=== PATIENT | male | born 1935 | race Caucasian/White ===

== ENCOUNTER 2017-08-04 22:59 | Inpatient (IN) ==
[2017-08-05 00:22] LABS: MANUAL DIFF NEEDED? NO
[2017-08-05 00:23] LABS: BASO% 0.6 % (0.0-0.8); EOS# 0.11 X1000 (0.0-0.7); EOS% 0.9 % (0.0-10.0); HEMATOCRIT 45.6 % (42.0-52.0); HEMOGLOBIN 15.2 g/dL (14.0-18.0); IMM GRAN# 0.17 X1000 (0.0-0.04); IMM GRAN% 1.3 % (0.0-0.5); LYMPH# 2.06 X1000 (1.2-3.4); LYMPH% 16.3 % (20.5-51.1); MCH 30.2 PG (27-31); MCHC 33.3 g/dL (33-37); MCV 90.7 FL (81-99); MONO# 1.45 X1000 (0.11-0.59); MONO% 11.5 % (1.7-9.3); MPV 10.5 FL (7.4-10.4); NEUT% 69.4 % (42.2-75.2); PLT 289 X1000 (130-400); RBC 5.03 XMIL (4.7-6.1)
[2017-08-05] MEDS ORDERED: MORPHINE IV ONE (00:29)
[2017-08-05] MEDS ORDERED: ZOFRAN IV ONE (00:30)
[2017-08-05] MEDS ORDERED: NS 1,000 ML IV ONE (00:33)
[2017-08-05 00:34] LABS: ALBUMIN 4.5 g/dL (3.5-5.0); CALCIUM 10.5 mg/dL (8.8-10.2); POTASSIUM 4.1 mmol/L (3.5-5.1); TOTAL BILIRUBIN 0.25 mg/dL (0.20-1.00); TOTAL PROTEIN 7.8 g/dL (6.3-8.3)
[2017-08-05 00:51] LABS: AMYLASE 147 U/L (20-200); LIPASE 41 U/L (13-60)
[2017-08-05] MEDS ORDERED: D5 1/2 NS 1,000 ML IV ONE (03:52)
[2017-08-05] MEDS: MORPHINE IV PRN (04:03)
--- NOTE | 2017-08-05 05:04 | HISTORY AND PHYSICAL ---
PRIMARY CARE PHYSICIAN: Dr. Tom Zamora. CHIEF COMPLAINT: Abdominal pain. HISTORY OF PRESENT ILLNESS: Mr. Schneider is an 81-year-old male with past medical history of anxiety, depression, hypertension, who comes to the hospital complaining of right upper quadrant pain. According to the patient, around 10:30 p.m. yesterday he felt a very sudden sharp right upper quadrant pain radiating towards his chest. For the following 4 hours, the pain increasingly became worse and decided to come to the emergency room. The patient denies any vomiting, diarrhea. He states he has been constipated for the last 3 days. The patient states that the pain was very intense and could hardly walk and his abdomen became very stiff. In the emergency room, he was given IV morphine which decreased the pain from 8/10 to 2-3. PAST MEDICAL HISTORY: 1. Anxiety. 2. Depression. 3. Hypertension. 4. Question of an HI. PAST SURGICAL HISTORY: 1. Appendectomy. 2. Goiter. 3. Two knee surgeries. 4. Right shoulder surgery. 5. Stent placement. 6. TURP. 7. Three lumbar surgeries. ALLERGIES: No known drug allergies. MEDICATIONS: 1. Hydrochlorothiazide 12.5 mg twice a day. 2. Carvedilol 3.125 mg twice a day. 3. Clopidogrel 75 mg oral daily. 4. Aspirin 81 mg tablet oral daily. 5. Amlodipine 5 mg tablet oral daily. 6. Citalopram 20 mg tablet oral daily. 7. Niacin 1000 mg twice a day. SOCIAL HISTORY: Patient quit smoking in 1954. The patient denies drinking alcohol or using illicit drugs. Patient lives at home with his . FAMILY HISTORY: Brother has prostate cancer. Father of bone marrow cancer after being exposed to radiation. PHYSICAL EXAMINATION: VITALS: Temperature 94.3 degrees, pulse 80, respirations 22, blood pressure 157/95, oxygen saturation 95% on room air. GENERAL: Patient is alert and oriented x3. No acute distress. HEENT: Head is normocephalic, atraumatic. Eyes, OSCAR. Dry mucous membranes. NECK: Supple. No JVD. PULMONARY: Well ventilated bilaterally. No wheezing, rales, or crackles. CARDIOVASCULAR: S1, S2. No rubs, murmurs, or gallops. ABDOMEN: Slightly stiff, nondistended. Positive Lucia sign. EXTREMITIES: No lower extremity edema. Pedal pulses +4 bilaterally. NEUROLOGIC: Cranial nerves 2-12 grossly intact. No focal deficits. PSYCHIATRIC: Normal mood and affect. LABORATORIES: White blood cell count 12.6, hemoglobin 15.2, hematocrit 45.6, platelets 289,000. Sodium 140, potassium 4.1, BUN 27, creatinine 1.3. LFTs within normal limits. Lipase and amylase within normal limits. IMAGING: CT of the abdomen official read is still pending. Per ED report, the gallbladder is dilated. There are no stones present. CT of the chest official read still pending. No signs of pulmonary embolism. ASSESSMENT AND PLAN: 1. Right upper quadrant pain, likely cholecystitis. The patient did have a positive Lucia sign. White blood cell count is minimally elevated at 12.6. However, clinically the patient seems to have cholecystitis. The CT of the abdomen did not show any gallstones. However, his gallbladder was distended. In the morning we will get a right upper quadrant ultrasound and we will consider a surgery consult. We will control the pain with morphine which has been having good results for the patient. The patient will be NPO. 2. Acute kidney injury. There are no previous records of patient's creatinine. Currently, it is 1.3. Likely acute kidney injury secondary to dehydration. We will provide patient with IV fluids. 3. Hypertension. Current blood pressure is 157/95. We will continue patient's home medication. 4. Coronary artery disease. We will continue patient's home medication, carvedilol, clopidogrel, aspirin, amlodipine. 5. Anxiety and depression. We will continue patient's home medication citalopram. cc: MD Tom Ace MD
[2017-08-05 05:32] LABS: URINE MICRO REVIEW NEEDED? NO; URINE SOURCE VOIDED
[2017-08-05 05:35] LABS: BILIRUBIN URINE NEGATIVE (NEGATIVE); BLOOD URINE NEGATIVE (NEGATIVE); COLOR STRAW; GLUCOSE URINE NEGATIVE (NEGATIVE); LEUKOCYTES URINE NEGATIVE (NEGATIVE); NITRITE URINE NEGATIVE (NEGATIVE); PROTEIN URINE NEGATIVE (NEGATIVE); SP GRAVITY URINE 1.031; TURBIDITY URINE CLEAR (CLEAR); UROBILINOGEN URINE NORMAL (NORMAL)
[2017-08-05 05:36] LABS: UR EPITHELIAL CELLS <10 /HPF (<10); URINE BACTERIA NEGATIVE /HPF; URINE RBC <10 /HPF (<10); URINE WBC <10 /HPF (<10)
--- NOTE | 2017-08-05 07:30 | Diag Imaging Result Doc PS360 ---
EXAM: CT ABD/PELVIS W/ IV CONT ONLY - 08/05/2017 HISTORY: acute abdomen TECHNIQUE: With intravenous contrast only per request the referring provider. Low-dose protocol. COMPARISON: None. FINDINGS: There is a large hiatal hernia which is partially included on the upper images of the exam. The visualized lung bases appear clear except for some compressive atelectasis at the left base from the hiatal hernia. There are no substantial abnormalities of the liver, spleen, adrenal glands, or pancreas identified, other than some atrophic changes of the pancreas. The gallbladder is moderately distended. There are no calcified gallstones or pericholecystic inflammation identified. There are small bilateral renal cysts. There is no solid renal mass or hydronephrosis identified. There are no substantial enlarged lymph nodes identified. There are atherosclerotic calcifications noted. There are lumbar spine degenerative changes noted. There is a moderate amount retained fecal debris in the colon. There is colonic diverticulosis. There is no evidence of diverticulitis. There are some retained fluid in stomach and small bowel. This may relate to mild gastroenteritis. There is no substantial small bowel distention to suggest obstruction identified. There is no free air, free fluid, or abscess identified. Images of pelvis otherwise show a fat-containing right inguinal hernia. There is no bowel containing hernia seen. The prostate is somewhat prominent with mass effect on the base the urinary bladder. IMPRESSION: Large hiatal hernia. Possible mild gastroenteritis. Moderately distended gallbladder. No calcified gallstones or pericholecystic inflammation seen. Evidence of constipation. Uncomplicated colonic diverticulosis. No abscess. No free air. Fat-containing right inguinal hernia. No bowel containing hernia. Somewhat prominent prostate with mass effect on the base of the urinary bladder. The senior data integration developer radiologist provided preliminary results at 1:38 AM on 08/05/2017. Electronically signed by Ivan Travis 08/05/2017 7:28 AM
--- NOTE | 2017-08-05 07:35 | Diag Imaging Result Doc PS360 ---
EXAM: CT THORAX W/O CONTRAST - 08/05/2017 HISTORY: pain TECHNIQUE: No additional intravenous contrast was administered for this exam, but there is intravenous contrast on board from the earlier CT abdomen and pelvis. Low-dose protocol. COMPARISON: None. FINDINGS: There is a large hiatal hernia. There is mild compressive atelectasis of the adjacent medial left lower lobe. The remainder of the lungs appear clear of acute changes. There is a small calcified granuloma from old granulomatous disease at the posterior right base. There is no consolidation, pleural effusion, or pneumothorax identified. There are a couple small emphysematous bulla at the left lower lobe. There are no abnormally enlarged mediastinal lymph nodes identified. There are apparent coronary artery calcifications noted. IMPRESSION: Large hiatal hernia. Mild compressive atelectasis at left lower lobe adjacent to the hernia. Minimal emphysematous changes. No other evidence of acute disease in the thorax. No pneumonia. There are apparent coronary artery calcifications noted. The semiconductor testing group leader radiologist provided preliminary results at 1:34 AM on 08/05/2017. Electronically signed by Ivan Travis 08/05/2017 7:32 AM
--- NOTE | 2017-08-05 07:58 | Diag Imaging Result Doc PS360 ---
US ABDOMEN-COMPLETE - 08/05/2017 INDICATION: RUQ pain COMPARISON: CT from earlier today FINDINGS: The gallbladder is distended with wall thickening and surrounding trace fluid. The gallbladder measures 12.4 x 5.7 x 4.9 cm. No definite shadowing gallstones. The pancreas is obscured by bowel gas. There is a small left renal cyst. The right kidney appears normal. The liver and spleen are normal. Common bile duct measures 6 mm. Aorta, IVC, and main portal vein are patent. IMPRESSION: Findings compatible with acute cholecystitis. A report was immediately called to the floor. Electronically signed by Abner Meza 08/05/2017 7:56 AM
[2017-08-05] MEDS ORDERED: ZOFRAN IV PRN (08:37)
[2017-08-05] MEDS ORDERED: HEPARIN SUBQ SCH (09:00)
[2017-08-05] MEDS ORDERED: HYDROCHLOROTHIAZIDE PO SCH (09:00)
[2017-08-05 09:30] LABS: INR 0.99; PROTIME 10.4 Seconds (9.2-11.7)
--- NOTE | 2017-08-05 10:48 | EKG Report ---
Test Performed on : 08/05/2017 08:39:58 AM Test Reason : chest pain Blood Pressure : / mmHG Vent. Rate : 076 BPM Atrial Rate : 076 BPM P-R Int : 256 ms QRS Dur : 092 ms QT Int : 394 ms P-R-T Axes : 000 -24 007 degrees QTc Int : 443 ms Sinus rhythm. with marked sinus arrhythmia. with 1st degree AV block. with occasional premature vent ricular complexes. Otherwise normal ECG No previous ECGs available Confirmed by Pasquale DIXON, Nitish Nielsen ([id number]) on 08/05/2017 5:01:04 PM
--- NOTE | 2017-08-05 15:47 | CONSULTATION ---
DATE OF CONSULTATION: 08/05/2017 REQUESTING PHYSICIAN: Gregory Zamora MD REASON FOR CONSULTATION: Concerning cholecystitis. HISTORY OF PRESENT ILLNESS: An 81-year-old male with a history of anxiety, depression, hypertension, came to the emergency department with right upper quadrant pain. He also reported some chest pain. It was described initially as sharp and sudden onset radiating towards chest. He denied any nausea or vomiting. He has had some change in his stool with now some dark, tarry stool. He is normally seen by Dr. Handy. He had a recent colonoscopy what sounds like a year and a half ago that showed no real pathology from what the patient can tell me, but this dark, tarry stool has persisted. He was evaluated in the emergency department, admitted for cholecystitis. He had a CT scan that showed a distended gallbladder and an ultrasound that showed gallbladder disease. I was asked to evaluate the patient. The patient is feeling better, but did have pain described as 8/10 initially. PAST MEDICAL HISTORY: Anxiety. Depression. Hypertension. History of UT. PAST SURGICAL: Appendectomy. Thyroid surgery. Two knee surgeries. Right shoulder surgery. Previous cardiac stent placement. TURP. Three lumbar surgeries. ALLERGIES: None. HOME MEDICATIONS: Hydrochlorothiazide. Carvedilol. Plavix. Aspirin. Amlodipine. Citalopram. Niacin. SOCIAL HISTORY: Former smoker. Denies alcohol, tobacco or illicit drugs currently. FAMILY HISTORY: Positive for prostate cancer. Bone marrow cancer. REVIEW OF SYSTEMS: A full 10-point review of systems obtained, negative except as specified in HPI. PHYSICAL EXAMINATION: Vital Signs: Patient is currently afebrile. His vital signs have been stable. General: No acute distress. Well-nourished, well-developed male, looks stated age. HEENT: Normocephalic, atraumatic. Pupils equal, round, reactive to light. Mucous membranes moist. Oropharynx benign. Neck: Supple. Trachea midline. Cardiovascular: Regular rate and rhythm. Lungs: Clear. Abdomen: Soft, tender to palpation in the right upper quadrant. Positive Lucia sign. No peritonitis. No other abdominal pain. Extremities: Moves all extremities. Neurologic: Grossly intact. Skin: No signs of jaundice. Vascular: All extremities perfused. LABORATORY: Reviewed. White blood cell count yesterday was 12. Liver function tests essentially within normal limits. UA within normal limits. CT scan and ultrasound reviewed, consistent with cholecystitis. ASSESSMENT AND PLAN: An 81-year-old male with acute cholecystitis. 1. Acute cholecystitis. At this time, patient is on antibiotics. He does take Plavix. He stopped it last night. We will need to hold off on any kind of surgical intervention unless his clinical picture holds. I have him tentatively scheduled for at noon. Once he has his HIDA scan which I think will confirm cholecystitis, he can start on a clear liquid diet. I did discuss this case with Dr. Zamora, his primary care physician. We will proceed with surgery. 2. Skin lesion. He does have an abdominal skin lesion about his subxiphoid area that measured about 1 cm in maximal diameter. At the time of the operation, I can excise the skin area. 3. Multiple medical comorbidities. Currently being managed by his primary care physician. cc: MD Tom Saenz MD
[2017-08-05] MEDS: NORVASC PO SCH (16:12)
[2017-08-05] MEDS: SODIUM CHLORIDE 0.9% INJ SCH (16:13)
[2017-08-05] MEDS: CELEXA PO SCH (16:13)
[2017-08-05] MEDS: PROTONIX IV SCH (16:13)
[2017-08-05] MEDS: LEVAQUIN 500 MG/D5W 500 MG/100 ML IVPB IV SCH (16:13)
--- NOTE | 2017-08-05 16:17 | Diag Imaging Result Doc PS360 ---
EXAM: HIDA SCAN W/ EJECTION FRACTION HISTORY: abdominal bloating TECHNIQUE: 5.3 mCi of Choletec administered COMPARISON: None. FINDINGS: There is prompt uptake of radiopharmaceutical within the liver. There is filling of the gallbladder by 15 minutes. Normal emptying into the small bowel. Ensure was given to determine the gallbladder ejection fraction. This is calculated to be only 4% at 60 minutes. This is well below the normal range. IMPRESSION: Abnormal exam with a below normal gallbladder ejection fraction. Electronically signed by Collin Gonzalez 08/05/2017 4:14 PM
--- NOTE | 2017-08-05 22:35 | PROGRESS NOTE ---
DATE: 08/05/2017 SUBJECT: Patient is well known to me in my practice. 81-year-old white gentleman admitted to the hospital last night with abdominal pain right upper quadrant. He was seen before in our office for URI symptoms. X-rays was reviewed with hiatal hernia. He is scheduled for EGD and colonoscopy by Dr. Mckee. Past medical history, past surgical history, medicines were reviewed. REVIEW OF SYSTEMS: Constitutional: Abdominal pain, nausea. HEENT: With no symptoms. Cardiopulmonary: No chest pain, shortness of breath, PND, orthopnea. GI: Right upper quadrant pain, nausea not associated with eating. No bowel movements, no constipation or diarrhea. : No history of hesitancy, frequency. No swelling of legs. No joint pain. Neuro: No focal symptoms or weakness. PHYSICAL EXAMINATION: Vital Signs: He is afebrile and vitals are stable, 5 feet 9, 168 pounds. HEENT: Within normal limits. Neck: Supple. No lymphadenopathy. Vital Signs: Afebrile, blood pressure is stable, 5 feet 9, 168 pounds. HEENT: Atraumatic, normocephalic. Pupils equal, react to light. No anemia. No cyanosis. No jaundice. Neck: Supple. No lymphadenopathy. No goiter. Chest: Clear. Heart: Sounds are regular. Belly: Is soft. Tender in the right upper quadrant. Positive Lucia sign. No signs of peritonitis. Rectal: Deferred. Neuro: No neurological deficits noted. INVESTIGATIONS: CBC, white cell count 12, hematocrit 45, platelets 289,000, PT 10, INR 0.9. SMA 7, sodium 140 potassium 4.1, chloride 96, BUN 27, creatinine 1.3, glucose 147. LFTs were normal. ProBNP is normal. Cardiac enzymes, amylase, lipase were normal. ASSESSMENT AND PLAN: 1. 81-year-old white male admitted to the hospital with abdominal pain consistent with acalculous cholecystitis. Chest CT, abdominal pelvic CT were reviewed and distended gallbladder, large hiatal hernia. Hold the Plavix and HIDA scan today. 2. Large hiatal hernia. Continue on IV Protonix. 3. Elevated white cell count, also prophylactic intravenous antibiotics. 4. Hypertension on amlodipine. 5. Depression on Celexa. 6. Surgical consult Dr. Moctezuma. 7. Continue to hold the Plavix. 8. Based on the HIDA scan further recommendations will be followed. LEVEL OF DOCUMENTATION: 35 minutes. cc: Tom Zamora MD
[2017-08-06 05:53] LABS: HEMATOCRIT 39.1 % (42.0-52.0); HEMOGLOBIN 12.6 g/dL (14.0-18.0); MCH 30.6 PG (27-31); MCHC 32.2 g/dL (33-37); MCV 94.9 FL (81-99); RBC 4.12 XMIL (4.7-6.1)
[2017-08-06 05:57] LABS: AGAP 9; BUN 15 mg/dL (8-22); CALCIUM 8.4 mg/dL (8.8-10.2); CHLORIDE 102 mmol/L (98-107); COSMO 281; SODIUM 140 mmol/L (136-145); TCO2 29 mmol/L (25-35)
--- NOTE | 2017-08-06 06:34 | PROGRESS NOTE ---
DATE: 08/06/2017 SUBJECTIVE: Patient doing okay. No major issues. He did have his HIDA scan yesterday which showed chronic cholecystitis. The gallbladder did fill. He seems to be doing okay. His pain is improving. OBJECTIVE: Vital Signs: Patient is currently afebrile. His vital signs are stable. General Examination: No acute distress. Well-nourished, well-developed, male , looks stated age. HEENT: Normocephalic, atraumatic. Pupils equal, round, and reactive to light. Mucous membranes moist. Oropharynx benign. Neck: Supple. Trachea midline. Cardiovascular: Regular rate and rhythm. Lungs: Grossly clear. Abdomen: Soft. Mild tenderness to palpation epigastric and right upper quadrant. No peritoneal signs. Extremities: Moves all extremities. Neurologic: Grossly intact. Skin: No signs of jaundice. Vascular: All extremities perfused. Laboratory: White blood cell count is 14, hematocrit 39. Remainder of labs reviewed and essentially normal. Imaging reviewed and noted above. ASSESSMENT/PLAN: An 81-year-old, male with likely acute on chronic cholecystitis. 1. Acute on chronic cholecystitis. At this time, patient is on antibiotics. He was taking Plavix. He seems to be clinically doing well. I have him tentatively scheduled for surgery on . There is a possibility that if he improves clinically, he could be discharged and we could arrange to have his surgery done as an outpatient procedure but we will defer that to his primary care physician. We will keep him on a clear liquid diet at this point. 2. Skin lesion. At this time, he does have a skin lesion in the right subxiphoid trocar site. We will plan on excision of that at the same time of his operation. 3. Multiple medical comorbidities. Currently being managed by his primary care physician, Dr. Zamora. cc: MD Tom Saenz MD MTDD
[2017-08-06] MEDS: LEVAQUIN 500 MG/D5W 500 MG/100 ML IVPB IV SCH (09:19)
[2017-08-06] MEDS: NORVASC PO SCH (09:19)
[2017-08-06] MEDS: CELEXA PO SCH (09:19)
[2017-08-06] MEDS: SODIUM CHLORIDE 0.9% INJ SCH (09:20)
[2017-08-06] MEDS: PROTONIX IV SCH (09:20)
[2017-08-06] MEDS: MORPHINE IV PRN (11:18)
[2017-08-06] MEDS: NUBAIN IV PRN ×2 (12:40→22:04)
--- NOTE | 2017-08-06 18:55 | PROGRESS NOTE ---
DATE: 08/06/2017 SUBJECTIVE: The patient developed abdominal bloating, distention with clear liquids. Hold on Plavix. Waiting for laparoscopic cholecystectomy. REVIEW OF SYSTEMS: No chest pain, shortness of breath. OBJECTIVE: Vital Signs: Afebrile. Hemodynamics were stable. HEENT: Atraumatic, normocephalic. Pupils equal, reactive to light. Neck: Supple. No lymphadenopathy. Chest: Clear. Heart: Sounds are regular. Abdomen: Belly is soft. Tender in the right upper quadrant. No signs of peritonitis. Extremities: No peripheral edema, cyanosis. Neurologic: No obvious neurological deficits. ASSESSMENT AND PLAN: 1. Acalculous cholecystitis. EF 4%. Waiting for laparoscopic cholecystectomy on . Continue to hold on Plavix. 2. Hiatal hernia. Continue on IV Protonix. 3. Elevated white cell count. IV Levaquin. 4. We will discuss with Dr. Bayron Moctezuma whether he needs EGD or colonoscopy while he has been off Plavix. Discussed the plan of care and will follow up. LEVEL OF DOCUMENTATION: 25 minutes. cc: Tom Zamora MD
--- NOTE | 2017-08-07 06:20 | PROGRESS NOTE ---
DATE: 08/07/2017 SUBJECTIVE: Patient is doing okay. No major issues. OBJECTIVE: Vital Signs: Patient is currently afebrile. His vital signs are stable. General: No acute distress. HEENT: Normocephalic, atraumatic. Pupils equal, round, reactive to light. Mucous membranes moist. Oropharynx benign. Neck: Supple. Trachea midline. Cardiovascular: Regular rate and rhythm. Lungs: Clear. Abdomen: Soft. Minimal discomfort. Extremities: Moves all extremities. Neurologic: Grossly intact. Skin: No signs of jaundice. Vascular: All extremities perfused. LABORATORY: Reviewed from yesterday. ASSESSMENT AND PLAN: An 81-year-old male with acute on chronic cholecystitis. 1. At this time with acute on chronic cholecystitis, we will continue antibiotics. His Plavix is being held. We will plan on surgical intervention tomorrow. 2. Skin lesion. At this time, we will plan on intervention while he is in the operating room. 3. Change in bowel habits. At this time, given the change in bowel habits, I think we potentially could conceive doing an EGD and colonoscopy while he is on Plavix. I am unsure how well he would tolerate both procedures at the same setting. May need to space it out by 24 hours. I will discuss further with Dr. Zamora. cc: MD Tom Saenz MD
[2017-08-07] MEDS: LEVAQUIN 500 MG/D5W 500 MG/100 ML IVPB IV SCH (08:01)
[2017-08-07] MEDS: CELEXA PO SCH (08:01)
[2017-08-07] MEDS: PROTONIX IV SCH (08:01)
[2017-08-07] MEDS: NORVASC PO SCH (08:01)
[2017-08-07] MEDS: SODIUM CHLORIDE 0.9% INJ SCH (08:03)
[2017-08-07] MEDS: MORPHINE IV PRN (15:27)
[2017-08-07] MEDS: NUBAIN IV PRN (16:39)
--- NOTE | 2017-08-07 19:16 | PROGRESS NOTE ---
DATE: 08/07/2017 SUBJECTIVE: The patient complains of right upper quadrant pain off the Plavix. REVIEW OF SYSTEMS: Other than abdominal pain, none reported. EXAMINATION: Vitals: Are stable. HEENT: Within normal limits. Neck: Supple. Chest: Clear. Heart: Sounds are regular. Abdomen: Belly is soft. Tender in the right upper quadrant. Neurologic: No neurological deficits. ASSESSMENT AND PLAN: 1. Abdominal pain due to acalculous cholecystitis. Waiting for surgery in the morning. 2. Large hiatal hernia. Patient has been scheduled for EGD and colonoscopy. Discussed with Dr. Moctezuma. He is going to do the EGD and colonoscopy on Saturday, and continue present treatment with Levaquin, Zofran and Protonix. LEVEL OF DOCUMENTATION: 15 minutes. cc: Tom Zamora MD
--- NOTE | 2017-08-08 06:33 | PROGRESS NOTE ---
DATE: 08/08/2017 SUBJECTIVE: Patient doing okay. No major issues. OBJECTIVE: Vital Signs: Patient is currently afebrile. His vital signs are stable. General: No acute distress. HEENT: Normocephalic, atraumatic. Pupils equal, round, reactive to light. Mucous membranes moist. Oropharynx benign. Neck: Supple. Trachea midline. Cardiovascular: Regular rate and rhythm. Lungs: Clear. Abdomen: Soft. Minimal discomfort. Extremities: Moves all extremities. Neurologic: Grossly intact. Skin: No signs of jaundice. Vascular: Lower extremities perfused. LABORATORY: None this morning as of yet. ASSESSMENT AND PLAN: An 81-year-old male with acute on chronic cholecystitis. 1. Acute on chronic cholecystitis. At this time, we will plan for surgical intervention. His Plavix has been held. We will plan on surgery today. 2. Change in bowel habits. At this time, we have tentatively scheduled a colonoscopy and EGD for Saturday. He does have some reported dark-tarry stools. So again, would want to do both upper and lower endoscopy. His Plavix is being held. We will likely start his bowel prep tonight after the surgery. 3. Skin lesion. At this time, we will plan on removing it while in the operating room. cc: MD Tom Saenz MD
[2017-08-08] MEDS: LEVAQUIN 500 MG/D5W 500 MG/100 ML IVPB IV SCH (07:50)
[2017-08-08] MEDS: PROTONIX IV SCH (07:51)
[2017-08-08] MEDS: SODIUM CHLORIDE 0.9% INJ SCH (07:51)
[2017-08-08] MEDS: MORPHINE IV PRN (08:06)
[2017-08-08] MEDS: CELEXA PO SCH (08:16)
[2017-08-08] MEDS: NORVASC PO SCH (08:17)
[2017-08-08] MEDS ORDERED: MARCAINE 0.25% PF ONE (13:24)
[2017-08-08] MEDS ORDERED: LR 1,000 ML ONE ×2 (13:25→15:33)
[2017-08-08] MEDS ORDERED: SODIUM CHLORIDE 0.9% ONE (13:25)
[2017-08-08] MEDS ORDERED: DIPRIVAN 1% ONE (13:27)
[2017-08-08] MEDS ORDERED: XYLOCAINE-MPF 2% ONE (13:29)
[2017-08-08] MEDS ORDERED: FENTANYL ONE ×2 (13:52→14:57)
[2017-08-08] MEDS ORDERED: ZEMURON ONE (13:54)
[2017-08-08] MEDS ORDERED: EPHEDRINE ONE (14:21)
[2017-08-08] MEDS ORDERED: ZOFRAN ONE (14:21)
[2017-08-08] MEDS ORDERED: NEOSTIGMINE ONE (14:49)
[2017-08-08] MEDS ORDERED: ROBINUL ONE (14:49)
[2017-08-08] MEDS: MORPHINE ONE ×5 (15:30→15:50)
[2017-08-08] MEDS ORDERED: NORCO-10 ONE (15:58)
[2017-08-08] MEDS ORDERED: GOLYTELY PO ONE (16:25)
[2017-08-08] MEDS: LR 1,000 ML IV SCH (19:32)
--- NOTE | 2017-08-08 20:05 | OPERATIVE NOTE ---
PROCEDURE DATE: 08/08/2017 PREOPERATIVE DIAGNOSES: 1. Acute on chronic cholecystitis. 2. 1 cm abdominal wall skin lesion. POSTOPERATIVE DIAGNOSES: 1. Acute on chronic cholecystitis. 2. 1 cm abdominal wall skin lesion. PROCEDURES PERFORMED: 1. Laparoscopic cholecystectomy. 2. Excision of 1 cm skin lesion with complex closure via a 3 cm incision. SURGEON: Bayron Moctezuma MD HAND BOOTMAKER: None. ANESTHESIA: General endotracheal. INTRAOPERATIVE FINDINGS: Inflamed and irritated gallbladder, consistent with acute on chronic cholecystitis. He was on Plavix, which was held for least 4 days but still had friable tissue that is easy to bleed. His skin lesion was a tough skin lesion that measured 1 cm. It was excised completely. COMPLICATIONS: None at the time of dictation. ESTIMATED BLOOD LOSS: 30 mL. SPECIMENS REMOVED: Gallbladder and skin lesion. DRAIN: 19-[place]amese. HISTORY: The patient is an 81-year-old male presenting with symptoms consistent with cholecystitis. We admitted the patient and held his Plavix for 4 days to try to relieve some of the effect. The patient also had a skin. He wanted both procedures done at the same time. The risks, benefits, and alternatives were discussed. The risks include but are not limited to anesthesia, risk of bleeding, risk of infection, risk of damage to biliary tree and bile leak. All questions were answered. DESCRIPTION OF PROCEDURE: After informed consent was obtained, the patient was brought to the operating theatre and transferred to the operating table in supine position. General endotracheal anesthesia was then performed without complication. A formal time-out was then performed, confirming patient, date, and procedure. All were in agreement. At that time, attention was given to the abdomen. An infraumbilical incision was made, through which, using Optiview technique, we inserted a 12 mm trocar and connected it to insufflation. A pneumoperitoneum was achieved. Under direct visualization, we placed 3 more trocars, all 5 mm, 2 subcostal and 1 in the subxiphoid. Using these, the gallbladder was identified. It was very inflamed, consistent with acute cholecystitis. He likely had underlying chronic cholecystitis. We were able to elevate the gallbladder cephalad and dissect out the cystic duct and cystic artery to achieve the critical view of safety. We doubly clipped and ligated both the cystic duct and cystic artery and then dissected the gallbladder off the gallbladder fossa. It was very friable. We did tear a hole in the gallbladder, which drained some bile, but the liver bed was very friable. There was no active bleeding but just a friable overall surface. We placed the gallbladder into an endobag and brought it out through the infraumbilical incision, which had to be enlarged slightly to accommodate the size of the gallbladder. We then turned our attention to the gallbladder fossa. We irrigated out the abdomen copiously until the suction fluid was clear. Given the dense inflammatory process, the bleeding, this patient being on Plavix and spillage of bile, we elected to leave a drain tunneled from the most lateral trocar site to the right upper quadrant. We secured it in place with nylon and we then closed the infraumbilical incision with 0 Vicryl figure- of-eight with decent results. The patient did have tenuous fascia in this area. We then closed all skin incisions. We turned our attention to removing the abdominal skin lesion. It measured 1 cm. We made a 3 cm elliptical incision and removed it in its entirety. To facilitate closure, we did have to create some subcutaneous flaps. We did this and then closed it with 3-0 nylon. All skin incisions were closed with 4-0 Monocryl. The patient tolerated the procedure well and had a sterile dressing applied. He will keep his Saul-Pereira drain and we will plan for colonoscopy and EGD in the morning. cc: MD Tom Saenz MD
--- NOTE | 2017-08-08 20:37 | PROGRESS NOTE ---
DATE: 08/08/2017 SUBJECTIVE: The patient has some neck pain this morning. Waiting for gallbladder surgery. REVIEW OF SYSTEMS: Normal. PHYSICAL EXAMINATION: Vital Signs: Stable. HEENT: Within normal limits. Neck: Supple. Chest: Clear. Heart: Sounds are regular. Abdomen: Belly is soft. Tender in the right upper quadrant. ASSESSMENT AND PLAN: 1. Acalculous cholecystitis. Waiting for laparoscopic cholecystectomy. 2. Hiatal hernia. Waiting for EGD and colonoscopy in the morning while he has been off the Plavix. 3. Neck pain, probably referred pain or musculoskeletal. We will continue to watch. Hopefully we will discharge home offered EGD and colonoscopy tomorrow. LEVEL OF DOCUMENTATION: 25 minutes. cc: Tom Zamora MD
[2017-08-08] MEDS: PERIDEX MT SCH (23:05)
[2017-08-09] MEDS: NUBAIN IV PRN ×2 (02:35→13:17)
--- NOTE | 2017-08-09 06:13 | PROGRESS NOTE ---
DATE: 08/09/2017 SUBJECTIVE: The patient is doing okay. He has had some difficulty with his bowel prep. He has not had a bowel movement but he is not sick to his stomach. He feels a little bit bloated from his laparoscopic surgery, but otherwise he is doing okay. He has been on clear liquid diet for essentially 3-4 days. His pain is relatively well-controlled and calls it a 2 or 3, or even 4/10. Seems to be doing well. OBJECTIVE: Vital Signs: Patient is currently afebrile. His vital signs have been stable. General Examination: No acute distress. Resting comfortably. Cardiovascular: Regular rate and rhythm. Lungs: Grossly clear. Abdomen: Soft, appropriately tender. Saul- Pereira drain in place. 410 were recorded out over the last 24 hours. There is some mild bile tinge to the fluid but looks sanguinous too. ASSESSMENT/PLAN: An 81-year-old male, status post laparoscopic cholecystectomy for acute on chronic cholecystitis, now with hiatal hernia and change in bowel habits. 1. Status post cholecystectomy. At this time his Saul-Pereira drain needs to stay in place. He was more inflamed than initially thought. Left the drain given the inflammation. I suspect some of the bile in the DANNY is from the fact that we drained a little of the gallbladder and the bile into the abdomen intraoperatively. We will need to monitor its output and its characteristics to see if this persists, but I suspect that this is all draining intra- abdominal fluid. If it persists, may need to consider doing an endoscopic retrograde cholangiopancreatography. 2. Hiatal hernia. At this time, we will plan on esophagogastroduodenoscopy. 3. Change in bowel habits. At this time, we will plan on colonoscopy. I will give him two enemas this morning to see if we can clean him out. He might have a limited colonoscopy. 4. Skin lesion excised during the last procedure. cc: MD Tom Saenz MD MTDD
[2017-08-09] MEDS ORDERED: DIPRIVAN 1% ONE ×2 (09:03→09:22)
[2017-08-09] MEDS ORDERED: XYLOCAINE-MPF 2% ONE (09:08)
[2017-08-09] MEDS: CELEXA PO SCH (09:53)
[2017-08-09] MEDS: PERIDEX MT SCH ×2 (09:53→22:00)
[2017-08-09] MEDS: NORVASC PO SCH (09:53)
[2017-08-09] MEDS: PROTONIX IV SCH (12:29)
[2017-08-09] MEDS: LR 1,000 ML IV SCH ×2 (12:29→22:03)
[2017-08-09] MEDS: LEVAQUIN 500 MG/D5W 500 MG/100 ML IVPB IV SCH (13:32)
--- NOTE | 2017-08-09 15:51 | OPERATIVE NOTE ---
PROCEDURE DATE: 08/09/2017 PREOPERATIVE DIAGNOSES: 1. Hiatal hernia. 2. Melena. 3. Change in bowel habits. POSTOPERATIVE DIAGNOSES: 1. Type III hiatal hernia which was large with tortuous esophagus. 2. Tortuous esophagus. 3. Gastritis. 4. Pandiverticulosis. 5. Tortuous colon. 6. Poor bowel prep. 7. Nodular prostate. PROCEDURES PERFORMED: 1. Esophagogastroduodenoscopy. 2. Colonoscopy to the transverse colon. SURGEON: Bayron Moctezuma MD EXPERIENCE DESIGNER: None. ANESTHESIA: MAC. FINDINGS: As noted above. COMPLICATIONS: None at the time of dictation. ESTIMATED BLOOD LOSS: Zero. HISTORY: The patient is an 81-year-old male, presenting with change in his bowel habits. I did take his gallbladder out yesterday. He wanted to have EGD and colonoscopy while he was off his Plavix. He did have a poor bowel prep and had to have enemas, with which he still did not have much output, although we will do this procedure. The risks, benefits, and alternatives were discussed. All questions were answered. DESCRIPTION OF PROCEDURE: After informed consent was obtained, the patient was brought to the GI suite and placed on the GI table. MAC anesthesia was then performed without complication. A formal time-out was then performed, confirming patient, date, and procedure. All were in agreement. At that time, attention was given to the abdomen. An EGD scope was inserted through the oropharynx and passed through the esophagus. The esophagus was very tortuous. He had a large type III hiatal hernia, but we were able to get the scope into the esophagus, into the stomach, and into the duodenum. We saw no ulcers. He did have some gastritis but it was only mild. Again, he had a large, type III, hiatal hernia that incorporated about half of his stomach and, again, the esophagus was tortuous. Secondary to this, we removed the scope, repositioned the patient in decubitus, and did a digital rectal exam. He did have a nodular prostate. We then inserted the colonoscope. We had difficulty inserting all the way. We got about to the transverse colon. The colon was very tortuous. He had multiple diverticula and his abdomen was getting distended. We did not want to risk perforation. Again, his bowel prep was very poor. I could not visualize all surfaces, but I did not see any signs of bleeding. We removed the scope slowly, reviewing all surfaces but, again, it was a limited exam. The patient tolerated the procedure well and was transferred back to the recovery room in stable condition. cc: MD Tom Saenz MD
--- NOTE | 2017-08-09 21:20 | PROGRESS NOTE ---
DATE: 08/09/2017 SUBJECT: Patient complains of neck pain, also some hoarseness. DANNY drain draining a lot of fluid. Some bruising at the site of the incision. REVIEW OF SYSTEMS: None reported. PHYSICAL EXAMINATION: Vital signs: Are stable. HEENT: Within normal limits. Neck: Supple. No lymphadenopathy. Chest: Clear. Heart: Sounds are regular. Belly: Is soft and DANNY drain present. Neuro: No obvious neurological deficits. ASSESSMENT AND PLAN: 1. Status post laparoscopic cholecystectomy for acalculous cholecystitis. DANNY drain is there. Will follow up with Dr. Bayron Moctezuma. 2. Hiatal hernia and off Plavix, poor prep. Will go to EGD and colonoscopy today. Will hold the discharge. Continue present medical therapy. Check the labs in the morning. LEVEL OF DOCUMENTATION: 25 minutes. cc: Tom Zamora MD
[2017-08-09] MEDS: MIRALAX PO SCH (22:00)
[2017-08-10 05:59] LABS: MANUAL DIFF NEEDED? NO
[2017-08-10 06:09] LABS: BASO% 0.2 % (0.0-0.8); EOS# 0.03 X1000 (0.0-0.7); EOS% 0.3 % (0.0-10.0); HEMATOCRIT 35.8 % (42.0-52.0); HEMOGLOBIN 11.7 g/dL (14.0-18.0); IMM GRAN# 0.03 X1000 (0.0-0.04); IMM GRAN% 0.3 % (0.0-0.5); LYMPH# 0.77 X1000 (1.2-3.4); MCH 30.5 PG (27-31); MCHC 32.7 g/dL (33-37); MCV 93.2 FL (81-99); MONO# 1.65 X1000 (0.11-0.59); MPV 10.7 FL (7.4-10.4); NEUT% 77.2 % (42.2-75.2); PLT 205 X1000 (130-400); RBC 3.84 XMIL (4.7-6.1)
[2017-08-10 06:37] LABS: AGAP 10; BUN 14 mg/dL (8-22); CALCIUM 8.8 mg/dL (8.8-10.2); CHLORIDE 103 mmol/L (98-107); COSMO 282; POTASSIUM 3.8 mmol/L (3.5-5.1); SODIUM 141 mmol/L (136-145); TCO2 28 mmol/L (25-35)
[2017-08-10] MEDS ORDERED: LR 1,000 ML IV SCH (08:07)
--- NOTE | 2017-08-10 10:40 | PROGRESS NOTE ---
DATE: 08/10/2017 SUBJECTIVE: Interval history was reviewed. The patient had EGD and colonoscopy yesterday. The findings were hiatal hernia, tortuous esophagus, diverticulosis, tortuous colon, nodular prostate. The patient has trouble peeing. DANNY drain still also a lot of fluid coming. REVIEW OF SYSTEMS: No neck pain. No cardiopulmonary symptoms. GI: Constipation. : Trouble of peeing. No swelling of legs. Neurologic: No focal symptoms. PHYSICAL EXAMINATION: Afebrile. Vitals are stable. Oxygen saturation is 92% on room air. Input and output negative 2200.HEENT Exam: Within normal limits. Neck: Supple. Chest: Clear. Heart: Sounds are regular. Abdomen: Belly is soft. DANNY drain was draining and Galeas was placed. Extremities: No peripheral edema, cyanosis. No obvious neurological deficits. INVESTIGATIONS: CBC, white cell count 11, hematocrit 35, platelets 205,000. SMA 7 was normal. Urinalysis is clear. 1. Postop day 2 due to acalculous cholecystitis. DANNY drain still draining. 2. Hiatal hernia. Stable. 3. Bladder outlet obstruction. Galeas catheter. On Flomax and bladder training. 4. Constipation on MiraLAX. 5. Hiatal hernia. Continue on IV Protonix and slowly advance the diet. Level of documentation 35 minutes. cc: Tom Zamora MD
--- NOTE | 2017-08-10 11:40 | PROGRESS NOTE ---
DATE: 08/10/2017 SUBJECTIVE: Jude Schneider is postop day 1 from a laparoscopic cholecystectomy per Dr. Moctezuma. A drain was left at the time of surgery. There is no bile draining from that drain. OBJECTIVE: He is awake, cooperative, tolerating liquids. He has a Galeas catheter tube in place because of urinary retention. He remains on IV Levaquin. His white blood cell count 11. He is afebrile. His hematocrit is 36%. Electrolytes are within normal limits. PLAN: We will advance his diet to a regular diet. His Baldo drain needs to be removed prior to discharge. His Galeas catheter tube will remain because of his urinary retention. He is on Flomax. His abdomen is soft. All his incisions are intact. cc: MD Tom Mccarthy MD
[2017-08-10] MEDS: CELEXA PO SCH (11:51)
[2017-08-10] MEDS: NORVASC PO SCH (11:52)
[2017-08-10] MEDS: MIRALAX PO SCH ×2 (11:52→21:13)
[2017-08-10] MEDS: SODIUM CHLORIDE 0.9% INJ SCH (11:52)
[2017-08-10] MEDS: PROTONIX IV SCH (11:52)
[2017-08-10] MEDS: PERIDEX MT SCH ×2 (11:53→21:13)
[2017-08-10] MEDS: FLOMAX PO SCH (12:11)
[2017-08-10] MEDS: LEVAQUIN 500 MG/D5W 500 MG/100 ML IVPB IV SCH (13:20)
[2017-08-11] MEDS: SODIUM CHLORIDE 0.9% INJ SCH (08:46)
[2017-08-11] MEDS: PERIDEX MT SCH ×2 (08:46→21:23)
[2017-08-11] MEDS: FLOMAX PO SCH (08:46)
[2017-08-11] MEDS: PROTONIX IV SCH (08:46)
[2017-08-11] MEDS: NORVASC PO SCH (08:46)
[2017-08-11] MEDS: MIRALAX PO SCH ×2 (08:47→21:23)
[2017-08-11] MEDS: CELEXA PO SCH (08:47)
--- NOTE | 2017-08-11 09:43 | PROGRESS NOTE ---
DATE: 08/11/2017 SUBJECTIVE: Mr. Jude Schneider is now postop day 2 from a laparoscopic cholecystectomy per Dr. Moctezuma. He still has a Galeas catheter tube in place because of urinary retention. He is a patient Dr. Gregory Zamora. OBJECTIVE: His heart rate this morning is 69, blood pressure is 153/73, O2 saturation 94%. He has no work of breathing. He clinically feels better. He is sitting up in bed. He has tolerated a regular diet. His DANNY drain is draining mostly serous fluid. His abdomen might be a little bit distended. All trocar sites seem to be healing well. PLAN: I removed his DANNY drain. His Galeas tube is being clamped in preparation of possibly having it removed per Dr. Zamora. We will saline lock his fluids because he is eating. He is also having some trouble with peripheral IVs. He continues to get IV levofloxacin per Dr. Zamora. cc: MD Tom Mccarthy MD
[2017-08-11] MEDS: LEVAQUIN 500 MG/D5W 500 MG/100 ML IVPB IV SCH (12:25)
--- NOTE | 2017-08-11 13:09 | PROGRESS NOTE ---
DATE: 08/11/2017 SUBJECTIVE: The patient is tolerating the diet very well. No abdominal pain. No neck pain. He has a Galeas that was placed. He looks a lot better today than yesterday. DANNY drain still has some fluid and Dr. Mcnamara is going to remove it today. REVIEW OF SYSTEMS: None reported. OBJECTIVE: Vital Signs: Temperature is 98 degrees. Hemodynamics are stable. He is 97% on room air. HEENT: Within normal limits. Neck: Supple. Chest: Clear to auscultation. Heart: Sounds are regular. Abdomen: Belly is soft, nontender. : Galeas was placed. INVESTIGATIONS: PSA was 6.9. ASSESSMENT AND PLAN: 1. Acalculous cholecystitis status post laparoscopic cholecystectomy. We will remove the DANNY drain as per Dr. Mcnamara. 2. Discontinue IV fluids since he is tolerating the diet. 3. Bladder outlet obstruction, elevated prostate specific antigen. Will do a bladder voiding trial along with Flomax. He was on IV Levaquin. If he is stable we will DC the Galeas catheter, based on the bladder scan results. LEVEL OF DOCUMENTATION: 25 minutes. cc: Tom Zamora MD
--- NOTE | 2017-08-12 06:14 | PROGRESS NOTE ---
DATE: 08/12/2017 SUBJECTIVE: The patient is doing well and tolerating a regular diet. He says he has had 3 bowel movements and seems to be doing okay, seems to be voiding. Reviewed his weekend history, he did have his Saul-Pereira drain removed over the weekend by my partner, Dr. Mcnamara, who apparently had just serous fluid coming out. Otherwise, he seems to be doing well. OBJECTIVE: Vital Signs: Patient is currently afebrile. His vital signs have been stable. General: No acute distress resting comfortably in bed. Cardiovascular: Regular rate and rhythm. Lungs: Grossly clear. Abdomen: Soft. Appropriately tender and less distended than reported over the weekend. ASSESSMENT/PLAN: An 81-year-old male with acute on chronic cholecystitis. Large hiatal hernia. Change in bowel habits and a nodular prostate. 1. Status post cholecystectomy. At this time, he is doing okay. His Saul-Pereira drain has been removed. He seems to be healing up well. He can likely be discharged from a surgical point of view. 2. Hiatal hernia. At this time, it is rather large and does not appear to be causing any kind of ulceration. He does not appear to be having dysphagia although he has a tortuous esophagus secondary to the position of his stomach. I would like to discuss this further with him as an outpatient, but at this time we will just monitor. 3. Change in bowel habits. At this time, he had incomplete colonoscopy secondary to bowel prep. I would want to see the patient back in a week or 2 to consider a repeat colonoscopy in 3-6 months to try to be able to see the whole entirety of the colon to make sure there is nothing that we missed completely. 4. Nodular prostate. At this time, the patient does have an elevated PSA. It was felt on exam during colonoscopy that we will need to follow up with this. I will defer to his primary care physician Dr. Zamora. cc: MD Tom Saenz MD
[2017-08-12 07:28] VITALS: BP 155/74
[2017-08-12] MEDS: CELEXA PO SCH (08:06)
[2017-08-12] MEDS: NORVASC PO SCH (08:06)
[2017-08-12] MEDS: MIRALAX PO SCH (08:06)
[2017-08-12] MEDS: SODIUM CHLORIDE 0.9% INJ SCH (08:06)
[2017-08-12] MEDS: PERIDEX MT SCH (08:06)
[2017-08-12] MEDS: PROTONIX IV SCH (08:06)
[2017-08-12] MEDS: FLOMAX PO SCH (08:06)
[2017-08-12] MEDS ORDERED: FLUZONE QUAD 2017-2018 SYRINGE IM ONE (08:18)
[2017-08-12] MEDS ORDERED: PNEUMOVAX 23 IM ONE (08:30)
--- NOTE | 2017-08-13 06:43 | DISCHARGE SUMMARY ---
ADMISSION DATE: 08/05/2017 DISCHARGE DATE: 08/12/2017 DISCHARGING DIAGNOSIS: Abdominal pain due to acalculous cholecystitis, ejection fraction 4%, status post laparoscopic cholecystectomy. SECONDARY DIAGNOSES: 1. Persistent cough due to moderate hiatal hernia. 2. Bladder outlet obstruction due to nodular prostate, prostate specific antigen of 6.4. 3. Chronic anxiety/depression. 4. Hypertension. 5. History of coronary artery disease with stents. FOOD TESTER: Bayron Moctezuma MD. PROCEDURES: 1. Laparoscopic cholecystectomy. 2. EGD and colonoscopy. Findings hiatal hernia. 3. Calculus colon with diverticulosis and nodular prostate. BRIEF HISTORY: Please see the H and P that was done on 08/05/2017. In brief, this is an 81-year- old pleasant gentleman with above problems, was admitted to the hospital with acute abdominal pain, nausea, and vomiting. Symptoms is consistent with gallbladder disease. Ultrasound was negative for gallstone disease. HIDA scan showed acalculous cholecystitis, ejection fraction 4%. Nevertheless, this surgery was postponed for 2 days because of the anticoagulation on board. Plavix was stopped and after per day, patient had a laparoscopic cholecystectomy. Postoperative course was complicated by a bladder outlet obstruction requiring Galeas catheter and Flomax. Galeas was successfully discontinued after bladder voiding trials. Patient is voiding very well. He also had EGD and colonoscopy done since she has been off the Plavix with above findings. The patient was discharged home in a stable condition. LABS: CBC: White cell count 11, hematocrit 35, platelets 205,000. SMA-7 was normal. PSA 6.49. Cardiac enzymes and proBNP were normal. Urinalysis is clear. RADIOLOGY PROCEDURES: Abdominal, pelvic CT: Findings large hiatal hernia, distended gallbladder, constipation, and diverticulosis. Chest CT: No evidence of acute disease in the thorax, coronary artery calcifications noted. Ultrasound of the abdomen compatible with the acute cholecystitis, distended gallbladder, and thickening. Ejection fraction is 4% on HIDA scan. PATHOLOGY REPORTS: 1. Gallbladder: Acute on chronic cholecystitis. 2. Abdominal epidermal cyst was removed. DISCHARGE INSTRUCTIONS: 1. Flu vaccine, 08/12/2017. 2. Pneumococcal vaccine, 08/12/2017. 3. Coreg 3.125 p.o. b.i.d. 4. Hold the Plavix until 10 days. 5. Aspirin 80 mg daily. 6. Celexa 20 daily. 7. Norvasc 5 mg daily. 8. Hold hydrochlorothiazide. 9. Niacin 1000 p.o. b.i.d. 10. Protonix 40 mg daily. 11. Flomax 0.4 mg daily. 12. Reglan 5 mg t.i.d. 13. Tramadol 50 q.4 hours as needed for pain. 14. Follow up in my office in 2 weeks as well as Dr. Bayron Moctezuma. cc: MD Bayron Glasgow MD [facility]
--- NOTE | 2017-08-14 18:15 | PROVIDER DOCUMENTATION ---
This chart was entered by Olivia Frias Scribe, acting as scribe for Kevin Mckeon MD. HPI-Abdominal Pain/GI Problem - General Chief Complaint: Constipation Stated Complaint: "IMPACTED ABOUT A WEEK" Time Seen by Provider: 08/05/17 00:18 Source: patient Allergies/Adverse Reactions: Patient Allergies Allergy/AdvReac Type Severity Reaction Status Date / Time No Known Allergies Allergy Verified 01/19/13 12:25 Home Medications: Home Medication List Medication Instructions Recorded Confirmed Last Taken Type Aspirin 81 mg PO DAILY 01/19/13 08/05/17 08/04/17 History Carvedilol [Coreg] 3.125 mg PO BID 01/19/13 08/06/17 08/04/17 History Amlodipine [Norvasc] 5 mg PO DAILY 08/05/17 08/05/17 08/04/17 History Citalopram [Celexa] 20 mg PO DAILY 08/05/17 08/05/17 08/04/17 History Niacin 1,000 mg PO BID 08/05/17 08/05/17 08/04/17 History Metoclopramide HCl [Reglan] 5 mg PO TID #90 tablet 08/12/17 Unknown Rx Pantoprazole [Protonix] 40 mg PO DAILY@0700 #30 tablet 08/12/17 Unknown Rx Tamsulosin [Flomax] 0.4 mg PO QHS #30 capsule 08/12/17 Unknown Rx Tramadol [Ultram] 50 mg PO Q4HR #30 tablet 08/12/17 Unknown Rx - History of Present Illness-ABD Nature of Presenting Problems: 81 Y/O M present to ER with the complain of abd pain this night. pt states that he heard some pop sound in his stomach. pt states that he is trying to have regular BM for X4 days. pt states that he was impacted X1 week. Abdominal Pain Onset Location: reports: generalized abdomen Pain Radiation: reports: no radiation Quality of Pain: reports: sharp Severity in ED: reports: moderate Onset/Duration: reports: this evening Timing: reports: still present Activities at Onset: reports: none Exposure to sick contacts?: No Modifying Factors: improves with: nothing Associated Symptoms: reports: constipation Last BM: 4 days ago Dark Stools Present?: reports: none noticed Rectal Bleeding: reports: none Rectal Pain: reports: none Emesis Description: reports: none Bruising or Bleeding Gums?: No Review of Systems - Adult - REVIEW OF SYSTEMS - ADULT Constitutional: reports: no symptoms reported Eyes: reports: no symptoms reported Ears, Nose, Mouth & Throat: reports: no symptoms reported Cardiovascular: reports: no symptoms reported Respiratory: reports: no symptoms reported Gastrointestinal: reports: abdominal pain, constipation, other (no regular BM in last X4days). denies: nausea, vomiting Genitourinary: reports: no symptoms reported Musculoskeletal: reports: no symptoms reported Integumentary: reports: no symptoms reported Neurological: reports: no symptoms reported Psychiatric: reports: no symptoms reported Endocrine: reports: no symptoms reported Hematologic/Lymphatic: reports: no symptoms reported Allergic/Immunologic: reports: no symptoms reported All Other Systems: Reviewed and Negative Past History - Adult - PAST MEDICAL HISTORY-ADULT Review of Records: reports: Old Records Reviewed, Nursing Assessment Review - PRIOR SURGERIES/PROCEDURES Surgical/Procedure History: reports: appendectomy, other (total knee and RT shoulder) - IMMUNIZATION STATUS Childhood Immunizations: See Nurse Assessment Flu Vaccine: See Nurse Assessment Physical Exam-General - PHYSICAL EXAM-ADULT Initial Vital Signs Reviewed: Yes - CONSTITUTIONAL General Appearance: moderate distress, anxious, combative - EYES Eyes: PERRL/EOMI, pink conjunctivae - HEAD, EARS, NOSE, MOUTH & THROAT HENMT: normocephalic/atraumatic, moist mucous membranes - NECK Neck: non-tender, full range of motion, supple - RESPIRATORY Respiratory: chest non-tender, lungs clear, normal breath sounds - CARDIOVASCULAR Cardiovascular: normal peripheral pulses, regular rate, rhythm, no edema - GASTROINTESTINAL (ABDOMEN) Abdominal Exam: abnormal bowel sounds (no bowel sound), distended, other (acute abd and tightness) - MUSCULOSKELETAL Back Exam: normal inspection, no CVA tenderness, no vertebral tenderness Extremity: no pedal edema, no calf tenderness. negative: swelling, tenderness - SKIN Integumentary: normal color, normal turgor, warm/dry - NEUROLOGIC Neurologic: grossly normal, no motor/sensory deficits - PSYCHIATRIC Psych/Mental Status: normal mood/affect, normal thought content, normal thought process, oriented x 3 Progress - PLAN OF CARE/RESULTS Progress/Plan/Lab Results: Vital Signs - 8 hr 08/04/17 23:11 Temperature 94.3 F L Pulse Rate 65 Respiratory Rate 18 Blood Pressure 130/82 O2 Sat by Pulse Oximetry 100 Laboratory Results - last 24 hr 08/04/17 23:56 WBC 12.60 H RBC 5.03 Hgb 15.2 Hct 45.6 MCV 90.7 MCH 30.2 MCHC 33.3 RDW Std Deviation 14.2 Plt Count 289 MPV 10.5 H Immature Gran % (Auto) 1.3 H Neut % (Auto) 69.4 Lymph % (Auto) 16.3 L [place] % (Auto) 11.5 H Eos % (Auto) 0.9 Baso % (Auto) 0.6 Immature Gran # (Auto) 0.17 H Neut # (Auto) 8.73 H Lymph # (Auto) 2.06 [place] # (Auto) 1.45 H Eos # (Auto) 0.11 Baso # (Auto) 0.08 Orders Category Date Time Status flat [FLAT/UPRIGHT ABD/1 VIEW CHEST] [RAD] Stat Exams 08/05/17 00:11 Ordered CBC WITH ELECTRONIC DIFF [HEME] Stat Lab 08/05/17 00:11 Completed COMPREHENSIVE METABOLIC PANEL [CHEM] Stat Lab 08/05/17 00:11 Received Result Diagrams: 08/10/17 05:45 08/10/17 05:45 - CT/MRI 1 CT Study: Abdomen Impression: Abnormal, See EMR Report 2 CT Study: other (chest) Impression: Abnormal CT Results: indeterminate L upper lobe pulmonary nodule by radiologist - CONSULTS/PCP/HOSPITALIST Notification #1 *Consult/PCP/Hospitalist*: Dr. Cohn Time Discussed: 02:18 Reason/Comments: discussed about pt Consult Disposition: Admit Departure - Departure Date of Disposition Decision: 08/05/17 Time of Disposition Decision: 01:00 DIAGNOSIS: Cholecystitis Constipation Qualifiers: Constipation type: unspecified constipation type Qualified Code(s): K59.00 - Constipation, unspecified Disposition: ADMITTED INPATIENT 09 Certified Medical Emergency: Emergent Condition: Good - Critical Care Note This patient required my direct & personal management of CC.: No Attestation - Physician/ ASHLY Attestation Patient care was provided by Advanced Practice Provider:: No The physician spent face to face time with patient:: Yes Advanced Practice Provider documentation review:: Supervising physician onsite and consulted in the evaluation and care of this patient. The physician did have a face to face encounter with the patient. This chart was documented by the indicated scribe, (Olivia Frias, [place]) and accurately reflects the services I performed and decisions made by me, Kevin Mckeon MD, as attested by the provider's signature.
== END 2017-08-12 09:30 | disposition home or self-care (01) ==
LOC: ED 22:59 → 4N 08-05 03:52 → SUATTDRO 08-05 03:52
PROVIDERS: ADMIT Internal Medicine; ATTEND Internal Medicine

== ENCOUNTER 2019-03-05 09:52 | Inpatient (IN) ==
[2019-03-05] MEDS ORDERED: ASPIRIN ONE (10:05)
[2019-03-05] MEDS ORDERED: ASPIRIN PO ONE (10:31)
[2019-03-05 10:46] LABS: BASO# 0.05 X1000 (0.0-0.2); BASO% 0.7 % (0.0-0.8); EOS# 0.19 X1000 (0.0-0.7); EOS% 2.8 % (0.0-10.0); HEMATOCRIT 40.1 % (42.0-52.0); HEMOGLOBIN 12.8 g/dL (14.0-18.0); IMM GRAN# 0.02 X1000 (0.0-0.04); IMM GRAN% 0.3 % (0.0-0.5); LYMPH% 20.4 % (20.5-51.1); MCH 29.2 PG (27-31); MCHC 31.9 g/dL (33-37); MCV 91.6 FL (81-99); MONO# 0.78 X1000 (0.11-0.59); MONO% 11.4 % (1.7-9.3); MPV 11.3 FL (7.4-10.4); NEUT# 4.41 X1000 (1.4-6.5); NEUT% 64.4 % (42.2-75.2); PLT 133 X1000 (130-400); RBC 4.38 XMIL (4.7-6.1); RDW 14.6 % (11.5-14.5); WBC 6.85 X1000 (4.8-10.8)
--- NOTE | 2019-03-05 10:48 | Diag Imaging Result Doc PS360 ---
EXAM: CHEST-PORTABLE 03/05/2019 HISTORY: cp TECHNIQUE: AP portable at 1039 COMMENT: There is a large hiatal hernia. There has been resolution of platelike atelectatic changes in the left base since 11/29/2018. No new abnormalities are present. IMPRESSION: Hiatal hernia. Electronically signed by Miles Quezada 03/05/2019 10:45 AM
[2019-03-05 10:53] LABS: INR 0.95; PROTIME 13.5 Seconds (11.0-16.0)
[2019-03-05 10:54] LABS: PTT 24.9 Seconds (22.3-41.8)
[2019-03-05 11:32] LABS: AGAP 9; ALB/GLOB RATIO 1.3; ALKALINE PHOSPHATASE 94 U/L (32-122); BUN 17 mg/dL (8-22); CALCIUM 9.1 mg/dL (8.8-10.2); CHLORIDE 106 mmol/L (98-107); CK PROFILE 62 U/L (24-204); COSMO 281; ESTIMATED GFR > 60; GLUCOSE 108 mg/dL (70-104); GOT 21 U/L (10-34); GPT 22 U/L (10-44); POTASSIUM 3.8 mmol/L (3.5-5.1); SODIUM 140 mmol/L (136-145); TCO2 25 mmol/L (25-35); TOTAL BILIRUBIN 0.42 mg/dL (0.20-1.00)
--- NOTE | 2019-03-05 16:18 | EKG Report ---
Test Performed on : 03/05/2019 11:06:25 AM Test Reason : sob Blood Pressure : / mmHG Vent. Rate : 046 BPM Atrial Rate : 046 BPM P-R Int : 264 ms QRS Dur : 086 ms QT Int : 470 ms P-R-T Axes : 048 -18 -23 degrees QTc Int : 411 ms Sinus bradycardia. with 1st degree AV block. with occasional premature ventricular complexes. Otherwise normal ECG When compared with ECG of 05-MAR-2019 10:06, (Unconfirmed) premature ventricular complexes. are now present Unconfirmed Result
[2019-03-05] MEDS: LIPITOR PO SCH (20:24)
--- NOTE | 2019-03-05 21:51 | HISTORY AND PHYSICAL ---
CHIEF COMPLAINT: Dizzy, near-syncope, getting pale since yesterday. HISTORY OF PRESENT ILLNESS: He is an 83-year-old white male with existing coronary artery disease, status post 2 stents, on medical treatment. He was evaluated in the ER with recurrent dizzy spells and near-syncope. The patient was found to have sinus bradycardia with a junctional first-degree AV block. The patient was consulted by Dr. Plasencai. He is not offering any chest pain. Basically admitted to the hospital with syncope or near-syncope due to symptomatic sinus bradycardia, appears to be sick sinus syndrome. PAST MEDICAL HISTORY: CAD with stents, RCA and LAD in 01/2019; hypertension; hiatal hernia; hyperlipidemia; osteoarthritis; C-spine spondylosis; prostate cancer. PAST SURGICAL HISTORY: Right knee surgery, left knee arthroscopy, stents x2 by Dr. Melgar, right cataract surgery, thyroidectomy, appendectomy, cholecystectomy, umbilical hernia repair, incisional hernia repair, radical prostatectomy, back surgery, right shoulder surgery. MEDICATIONS: Aspirin 81 mg daily, Coreg 12.5 p.o. b.i.d., Cozaar 100 daily, Flonase as needed, hydrochlorothiazide 12.5 p.o. b.i.d., Protonix 40 daily, Plavix 75 daily. ALLERGIES: HOLLIS inhibitors due to cough, statins due to rash and hives. SOCIAL HISTORY: He is single. He has 3 children. 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 No smoking, no alcohol. FAMILY HISTORY: Father of leukemia. Mother of diabetic complications. Brother had prostate cancer. HEALTH MAINTENANCE: Flu vaccine in 2017, pneumococcal in 2016, shingles in 2006. Last prostate exam 06/2018. Colonoscopy and EGD 08/2017. REVIEW OF SYSTEMS: HEENT: No headache, no vision problem. No earache. No sore throat. Neck: No goiter. No lymphadenopathy. No bruit. Cardiopulmonary: No chest pain. No shortness of breath, PND or orthopnea. GI: No nausea, vomiting, abdominal pain. : No history of hesitancy, frequency, dysuria. No swelling of legs. No joint pain. Neurologic: No focal symptoms or weakness. PHYSICAL EXAMINATION: VITAL SIGNS: Temperature is 98 degrees, pulse is 50, blood pressure 150/68. Five feet 9 inches, 170 pounds. HEENT: Atraumatic, normocephalic. Pupils equal and reactive to light. Nose and throat within normal limits. NECK: Supple. No lymphadenopathy. CHEST: Bilateral air entry. HEART: Sounds are regular. No murmur. ABDOMEN: Belly is soft, nontender. Multiple scars present. NEUROLOGIC: No neurological deficits. LABORATORY DATA: CBC: White cell count 6.8, hematocrit 40, platelets 133,000. PT/INR is normal. SMA 7, LFTs and cardiac enzymes were normal. We will check the thyroid function tests. DIAGNOSTIC DATA: Chest x-ray basically showed hiatal hernia, stable. EKG: Sinus with junctional and PVCs. ASSESSMENT AND PLAN: 1. Near-syncope. Basically due to symptomatic sinus bradycardia with junctional and possible sick sinus syndrome. Discontinue Coreg. Cardiology consult. 2. History of coronary artery disease with stents. Probably he needs permanent pacemaker. 3. Reconcile home medications. 4. Discussed the plan of care with the and family. We will continue to monitor. If he is symptomatic, he needs transcutaneous external pacing versus atropine. cc: Tom Zamora MD
[2019-03-06 05:45] LABS: BASO# 0.04 X1000 (0.0-0.2); BASO% 0.6 % (0.0-0.8); EOS# 0.23 X1000 (0.0-0.7); EOS% 3.7 % (0.0-10.0); HEMATOCRIT 38.7 % (42.0-52.0); HEMOGLOBIN 12.4 g/dL (14.0-18.0); IMM GRAN# 0.02 X1000 (0.0-0.04); IMM GRAN% 0.3 % (0.0-0.5); LYMPH# 1.86 X1000 (1.2-3.4); LYMPH% 29.9 % (20.5-51.1); MCH 29.5 PG (27-31); MCV 91.9 FL (81-99); MONO# 0.84 X1000 (0.11-0.59); MONO% 13.5 % (1.7-9.3); MPV 11.3 FL (7.4-10.4); NEUT# 3.23 X1000 (1.4-6.5); PLT 178 X1000 (130-400); RBC 4.21 XMIL (4.7-6.1); RDW 14.7 % (11.5-14.5); WBC 6.22 X1000 (4.8-10.8)
[2019-03-06 06:01] LABS: AGAP 10; BUN 18 mg/dL (8-22); CHLORIDE 107 mmol/L (98-107); CK PROFILE 41 U/L (24-204); COSMO 287; ESTIMATED GFR > 60; GLUCOSE 103 mg/dL (70-104); POTASSIUM 3.9 mmol/L (3.5-5.1); SODIUM 143 mmol/L (136-145); TCO2 26 mmol/L (25-35)
[2019-03-06 06:13] LABS: FREE T4 0.99 ng/dL (0.93-1.70)
[2019-03-06 06:19] LABS: TSH 7.58 uIUmL (0.27-4.20)
--- NOTE | 2019-03-06 07:25 | EKG Report ---
Test Performed on : 03/06/2019 06:45:47 AM Test Reason : cp Blood Pressure : / mmHG Vent. Rate : 050 BPM Atrial Rate : 050 BPM P-R Int : 258 ms QRS Dur : 098 ms QT Int : 454 ms P-R-T Axes : 000 205 174 degrees QTc Int : 413 ms Sinus bradycardia. with 1st degree AV block. Right superior axis deviation T wave abnormality, consider inferior ischemia Abnormal ECG When compared with ECG of 05-MAR-2019 12:00, (Unconfirmed) premature ventricular complexes. are no longer present QRS axis shifted left T wave inversion now evident in Lateral leads Confirmed by Saul DIXON, Jose Abernathy ([id number]) on 03/08/2019 4:38:34 PM
[2019-03-06] MEDS: PLAVIX PO SCH (08:14)
[2019-03-06] MEDS: ASPIRIN PO SCH (08:15)
[2019-03-06] MEDS ORDERED: COZAAR PO SCH (09:00)
--- NOTE | 2019-03-06 09:17 | EKG Report ---
Test Performed on : 03/05/2019 12:00:10 PM Test Reason : ED. No order in MT Blood Pressure : / mmHG Vent. Rate : 043 BPM Atrial Rate : 043 BPM P-R Int : 260 ms QRS Dur : 092 ms QT Int : 482 ms P-R-T Axes : 031 -14 -15 degrees QTc Int : 407 ms Marked sinus bradycardia. with 1st degree AV block. with occasional premature ventricular complexes. Abnormal ECG When compared with ECG of 05-MAR-2019 11:06, (Unconfirmed) No significant change was found Unconfirmed Result
[2019-03-06] MEDS ORDERED: COREG PO SCH (10:15)
[2019-03-06] MEDS: COREG PO SCH ×2 (11:01→21:35)
[2019-03-06 11:27] LABS: MAGNESIUM 1.9 mg/dL (1.5-2.7)
--- NOTE | 2019-03-06 17:41 | CARDIOLOGY CONSULTATION ---
DATE: 03/06/2019 CONSULTATION REQUESTED BY: Hospitalist service. REASON: Dizziness, near syncope, bradycardia. HISTORY: Mr. Schneider is a pleasant 83-year-old male that I recently saw in my office on February 20. The patient presented to the ER yesterday because on March 04 he had been to the [place] to do a few things. He was there somewhere around 2:30 or 2:45PM. He went to do some things like pumping gas. He filled up his tank. He went to a store there and was looking for some clothing. As he came close to looking at the labels of a pair of shoes, he suddenly felt blurred vision. He felt sweaty, weak, dizzy. He went to a cafeteria, had a glass of orange juice and ate something and after a while he felt better. Then he drove back home. By the time he made home, which is about 45 minutes to 1 hour he reported falling asleep for a short period of time on the wheel. As soon as he made it home, his noted that he was extremely pale. He laid down at about 4:30 p.m. and stayed there for a while. He slept. The next morning he got up and decided to seek evaluation. He called my office. Unfortunately, we were not able to see him and one of my attendants took him to the emergency room. In the ER, they did an EKG at about 10 a.m. that showed sinus bradycardia 351 beats per minute with first-degree AV block, 260 milliseconds. No acute ischemic changes. The patient had reported no chest pains or true syncope. Subsequent EKG done at 11 a.m. shows sinus rhythm with first-degree AV block, PVCs. Rate 46 beats per minute. The EKG done this morning at 6:45 in the morning showed sinus bradycardia, rate 53 per minute. There is lead reversal on this particular EKG. There is no ST- segment abnormalities. They have checked troponins a couple of times, one at 10 a.m. yesterday, one at 4:45 in the morning. They were negative. The patient has not had any chest pain. ProBNP is normal. He is basically feeling back to his normal self or close to it. PAST HISTORY: Positive for previous coronary stents several years ago and then recently in January of this year to the right coronary artery. Excellent results were achieved. He has history of hypertension, hyperlipidemia, osteoarthritis. SURGICAL HISTORY: He has had bilateral knee surgery, cataract surgery, he has had thyroidectomy, cholecystectomy, umbilical hernia repair, back surgery and right shoulder surgery. SOCIAL HISTORY: He is a . He lives at home. He has grown-up children. He is . He is not a smoker. He is ex-. HOME MEDICATIONS: At the time of the present hospital admission he was taking atorvastatin 20 mg at bedtime, carvedilol 12.5 twice a day, Plavix 75 daily, hydrochlorothiazide 12.5 twice a day, losartan 100 daily, aspirin 81 daily. REVIEW OF SYSTEMS: He has not had any major complaint in any major organ system up until the onset of the aforementioned complaints related in the HPI. PHYSICAL EXAM: Today blood pressure is 143/81, temperature 97.9 degrees, pulse 61, respirations 16.General: Patient is awake, alert, oriented, in no distress. HEENT: Unremarkable. Chest: Clear to auscultation and percussion. Heart: Sounds are regular rhythmic. I do not hear any gallop or murmur. Abdomen: Nontender, soft. No masses, no hepatomegaly. Extremities: Show good pulses. No peripheral edema. Neurological: Nonfocal. Moves 4 extremities. BLOOD WORK: Sodium 143, potassium 3.9, BUN is 18, creatinine 1.0. CK, troponin normal. Hemoglobin 12.4, hematocrit 38.7, MCV 91.9. Chest x-ray done in the ER shows hiatal hernia. IMPRESSION: 1. Patient who presents with what appears to be symptomatic bradycardia/vasovagal or vasodepressor syncope. 2. Abnormal EKG with first-degree atrioventricular block, sinus bradycardia and premature ventricular contractions. 3. History of severe coronary heart disease. Previous stent to right coronary artery and a prior stent several years ago to the same vessel. 4. Hyperlipidemia. 5. Osteoarthritis. RECOMMENDATION: At this time, I would suggest to minimize the beta-mary carmen to 3.125 mg twice a day. I will provide the patient with a loop recorder monitor. We will stop hydrochlorothiazide. We will make the Cozaar 50 twice a day instead of once a day. He will monitor his blood pressure home twice daily. I will reassess him at my office in a month after he has completed the loop recorder monitor. Further advice will be forthcoming. If patient is stable overnight, he may go home tomorrow morning. cc: MD Tom Stein MD MTDD
--- NOTE | 2019-03-06 18:47 | PROGRESS NOTE ---
DATE: 03/06/2019 SUBJECTIVE: The patient is feeling better and continues to have sinus bradycardia with PVCs, asymptomatic and waiting to be seen by die storage clerk. PHYSICAL EXAMINATION: Vital Signs: Temperature is 97 degrees, pulse is 56. Vitals are stable. Chest: Clear. Heart: Sounds are regular. Neurologic: No neurological deficits. INVESTIGATIONS: CBC is normal. SMA 7 is normal. Cardiac enzymes were negative. TSH is slightly high. T4 is normal. LDL is 59. ASSESSMENT AND PLAN: Symptomatic sinus bradycardia, rule out sick sinus syndrome. PLAN: 1. Decrease Coreg 3.125 p.o. b.i.d., aspirin. 2. Hypertension on Cozaar 50 p.o. b.i.d. and aspirin. 3. Hyperlipidemia on Lipitor. 4. Depression on Celexa. 5. Dr. Smith wants to monitor next 24 hours if he is asymptomatic. Will DC as an outpatient 30 day loop monitor and discuss the plan of care with the family. We need to reconcile his home medications. LEVEL OF DOCUMENTATION: 27 minutes. cc: Tom Zamora MD
[2019-03-06] MEDS ORDERED: CALMOSEPTINE OINTMENT TOP PRN (20:15)
[2019-03-06] MEDS: LIPITOR PO SCH (21:35)
[2019-03-07] MEDS: PLAVIX PO SCH (08:57)
[2019-03-07] MEDS: COREG PO SCH (08:57)
[2019-03-07] MEDS: ASPIRIN PO SCH (08:57)
[2019-03-07] MEDS ORDERED: COZAAR PO SCH (09:00)
--- NOTE | 2019-03-07 11:10 | PROGRESS NOTE ---
DATE: 03/07/2019 SUBJECTIVE: Mr Schneider has symptomatic bradycardia. He was admitted for near syncope. His TSH was somewhat low at 7.5. I started Levothroid on him today. His lab data showed CBC and electrolytes are unchanged. Cardiac enzymes have been negative. He is being seen by a drafting instructor, was seen by Dr. Smith. Lungs are clear. Heart sounds are normal. We are going to continue to watch him. cc: MD Tmo Vargas MD
[2019-03-07 12:15] VITALS: BP 145/78
[2019-03-08] MEDS ORDERED: SYNTHROID PO SCH (07:00)
--- NOTE | 2019-03-09 13:20 | DISCHARGE SUMMARY ---
ADMISSION DATE: 03/05/2019 DISCHARGE DATE: 03/07/2019 DISCHARGING DIAGNOSIS: Near syncope due to sick sinus syndrome, junctional with PVCs, sinus bradycardia SECONDARY DIAGNOSES: 1. Coronary artery disease with 2 stents. 2. Hypertension. 3. Hiatal hernia. 4. Hyperlipidemia. 5. Osteoarthritis. 6. History of prostate cancer. 7. C-spine spondylosis. CONSULTATIONS: Dr. Smith. BRIEF HISTORY: Please see the H and P that was done on 03/05/2019. In brief, he is an 83-year- old white male who came to the emergency room with near syncope for the last 2 days. The patient was found to have bradycardia junctional with PVCs, heart rate as low as 40. He has known history of coronary artery disease times with 2 stents under the care of Dr. Smith. During telemetry, the patient continues to have sinus bradycardia. The patient was on Coreg. We decreased the dose from 12.5 mg to 3.[address] Smith continues to monitor as an outpatient with a 30 day loop monitor. The patient was discharged home in a stable condition by Dr. Graham. LABORATORY: CBC: White cell count 6.2, hematocrit 38, and platelets 178,000. SMA 7 is normal. Cardiac enzymes were normal. TSH is slightly high. LDL 59. DISCHARGE INSTRUCTIONS: 1. Discontinue Coreg 12.5 p.o. b.i.d., aspirin 81 mg daily, Plavix 75 daily, Cozaar 100 daily, hydrochlorothiazide 12.5 daily, Lipitor 20 mg at bedtime. Coreg was decreased to 3.125 p.o. b.i.d. Celexa 20 mg daily. Synthroid 50 mcg daily for elevated TSH. 2. Outpatient: 30 day Loop monitor. 3. Follow up in my office next week. cc: MD Alfredo Glasgow MD MTDD
== END 2019-03-07 14:31 | disposition home or self-care (01) | DRG 310 ==
LOC: ED 09:52 → 3S 14:24
PROVIDERS: ADMIT Internal Medicine; ATTEND Internal Medicine
CPT/HCPCS: 71010; 71045; 80048; 80053; 82550; 83721; 83735; 83880; 84439; 84443; 84484; 85025; 85610; 85730; 93005; 93010; 99285; A9270

== ENCOUNTER 2019-10-18 16:23 | Inpatient (IN) ==
--- NOTE | 2019-10-18 16:55 | Diag Imaging Result Doc PS360 ---
EXAM: CT HEAD W/O CONTRAST 10/18/2019 HISTORY: syncope TECHNIQUE: This exam was performed using automated exposure control, adjustment of mA or kV according to patient size, and/or use of iterative reconstruction technique. COMMENT: There is no evidence of mass effect, bleed, or abnormal extra-axial fluid collection. The visualized paranasal sinuses are clear. The calvarium is intact. IMPRESSION: No evidence of acute intracranial disease. Electronically signed by Miles Quezada 10/18/2019 4:53 PM
--- NOTE | 2019-10-18 16:58 | Diag Imaging Result Doc PS360 ---
EXAM: CHEST-PORTABLE 10/18/2019 HISTORY: syncopal episode/confusion TECHNIQUE: AP portable at 1653 COMMENT: There is a large hiatal hernia. There is platelike opacity in both costophrenic angles. IMPRESSION: Hiatal hernia. Bibasilar atelectasis. Electronically signed by Miles Quezada 10/18/2019 4:55 PM
[2019-10-18 17:34] LABS: BASO# 0.06 X1000 (0.0-0.2); BASO% 0.9 % (0.0-0.8); EOS# 0.21 X1000 (0.0-0.7); EOS% 3.1 % (0.0-10.0); HEMATOCRIT 38.4 % (42.0-52.0); LYMPH# 1.75 X1000 (1.2-3.4); LYMPH% 26.1 % (20.5-51.1); MCH 29.4 PG (27-31); MCHC 31.3 g/dL (33-37); MCV 94.1 FL (81-99); MONO# 0.94 X1000 (0.11-0.59); MPV 11.5 FL (7.4-10.4); NEUT# 3.74 X1000 (1.4-6.5); NEUT% 55.9 % (42.2-75.2); PLT 172 X1000 (130-400); RBC 4.08 XMIL (4.7-6.1); RDW 13.8 % (11.5-14.5)
[2019-10-18 17:40] LABS: INR 1.03; PROTIME 13.6 Seconds (11.0-16.0)
[2019-10-18 18:06] LABS: AGAP 12; ALB/GLOB RATIO 1.6; ALBUMIN 3.7 g/dL (3.5-5.0); ALKALINE PHOSPHATASE 84 U/L (32-122); BUN 18 mg/dL (8-22); CALCIUM 9.4 mg/dL (8.8-10.2); CHLORIDE 105 mmol/L (98-107); COSMO 285; ESTIMATED GFR > 60; GLUCOSE 96 mg/dL (70-104); GOT 17 U/L (10-34); GPT 14 U/L (10-44); POTASSIUM 4.2 mmol/L (3.5-5.1); SODIUM 142 mmol/L (136-145); TCO2 25 mmol/L (25-35); TOTAL BILIRUBIN 0.19 mg/dL (0.20-1.00)
[2019-10-18 18:12] LABS: T4 5.74 ug/dL (4.60-12.00)
[2019-10-18 18:23] LABS: TSH 7.17 uIUmL (0.27-4.20)
[2019-10-18 18:51] LABS: URINE SOURCE CLEAN CATCH
[2019-10-18 19:00] LABS: BILIRUBIN URINE NEGATIVE (NEGATIVE); BLOOD URINE NEGATIVE (NEGATIVE); COLOR YELLOW; GLUCOSE URINE NEGATIVE (NEGATIVE); KETONE URINE NEGATIVE (NEGATIVE); LEUKOCYTES URINE NEGATIVE (NEGATIVE); NITRITE URINE NEGATIVE (NEGATIVE); PH URINE 7.5; PROTEIN URINE NEGATIVE (NEGATIVE); SP GRAVITY URINE 1.021; TURBIDITY URINE CLEAR (CLEAR); UROBILINOGEN URINE NORMAL (NORMAL)
[2019-10-18 19:02] LABS: UR EPITHELIAL CELLS <10 /HPF (<10); URINE BACTERIA NEGATIVE /HPF; URINE RBC <10 /HPF (<10); URINE WBC <10 /HPF (<10)
[2019-10-18] MEDS ORDERED: TYLENOL PO PRN (20:23)
[2019-10-18] MEDS ORDERED: ZOFRAN IV PRN (20:23)
[2019-10-18 20:58] LABS: IRON SATURATION 16 %; TIBC 302 ug/dL; TOTAL IRON 49 ug/dL (53-167); UNBOUND IRON 253 ug/dL (112-346)
[2019-10-18] MEDS: COLACE PO SCH (21:26)
[2019-10-18] MEDS: NS 1,000 ML IV SCH (21:27)
[2019-10-18] MEDS: LIPITOR PO SCH (23:01)
[2019-10-19] MEDS: COZAAR PO SCH ×2 (00:05→08:21)
--- NOTE | 2019-10-19 00:20 | EKG Report ---
Test Performed on : 10/18/2019 9:49:20 PM Test Reason : Stroke like symptoms Blood Pressure : / mmHG Vent. Rate : 061 BPM Atrial Rate : 061 BPM P-R Int : 000 ms QRS Dur : 082 ms QT Int : 466 ms P-R-T Axes : 000 -22 -01 degrees QTc Int : 469 ms Atrial fibrillation. Abnormal ECG When compared with ECG of 06-MAR-2019 06:45, Atrial fibrillation. has replaced Sinus rhythm. QRS axis shifted right T wave inversion no longer evident in Lateral leads QT has lengthened Unconfirmed Result
--- NOTE | 2019-10-19 05:42 | HISTORY AND PHYSICAL ---
ATTENDING PHYSICIAN: Tamir Parham MD. ADMITTING PHYSICIAN: Tamir Parham MD. CHIEF COMPLAINT: Syncope. HISTORY OF PRESENT ILLNESS: The patient is an 84-year-old male with a past medical history consistent with prediabetes in the form of metabolic syndrome, empiric syndrome, glucose, iron deficiency anemia, dyslipidemia, atherosclerotic coronary artery disease, constipation, and vitamin D deficiency, also a questionable history of symptomatic bradycardia. He also has a history of a stent to the right coronary artery in January. He also has a history of a stent to the right coronary artery in 2004. He also has a previous history of prostate cancer biopsy positive in April of 2018, a large hiatal hernia, spondylosis of the C-spine, hypothyroidism, low B12, and right shoulder pain. The patient was last seen in the [facility] Medicine [facility] on 09/29/2019 for cyclical fevers. He reports that he was driving back from [place] today, he pulled into the [employer] gas station locally here at [place], was having difficulty with his credit card in the pump, and began to feel flushed from his feet cephalad. His significant other was outside the car trying to assist him with his credit card and the patient passed out. The significant other broke his fall. Otherwise it was a traumatic injury with an open wound to the left upper extremity. He states that he was tingly all over, and this is the first event that he has ever had where he has had witnessed syncope. He has been stating as of late to his partner that he does not feel right, his temperature has been fluctuating between 96.7 and 100.1. When he was seen in the [facility] Medicine Clinic on 09/29/2019 he was following up after a recent Klebsiella pneumoniae urinary tract infection, and a CT scan in 2016 with a colonoscopy which was partially completed in 2017. Some additional labs were pending at that time and many of them have returned back as unremarkable. His pressure when he was seen in the Internal Medicine Clinic was 162/60, and his pulse at that time 59. He is on a beta mary carmen carvedilol 3.125 mg, as well as losartan 50 mg b.i.d. Based on the patient's witnessed episode of syncope and event monitor in the emergency room demonstrating heart rate 36 and 39 beats per minute, with increased ventricular ectopy. It is felt that he would be best served with overnight observation in the PBC Unit; however, this unit is full and he will be monitored overnight in the ICU. ALLERGIES: No known drug allergies. MEDICATIONS: On admission aspirin 81 mg once daily, atorvastatin 20 mg once daily, carvedilol 3.125 mg b.i.d., this will be held at the time of admission, Plavix 75 mg once daily, losartan 50 mg b.i.d., vitamin D 50,000 international units once weekly, Ultracet 325/37.5 one p.p. b.i.d. p.r.n., Robaxin 750 mg p.o. b.i.d. p.r.n., and vitamin B12 over the counter. FAMILY HISTORY: Father secondary to bone cancer. Mother at 96 of old age. Brother from prostate cancer with metastases at 73. Sister at 76 with nonspecific BOTT[employer]OES issues. 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 Tobacco and alcohol use: The patient drinks less than 2 beers per year, and he denies any tobacco, he had 3 years of use in the 1950s, but no ongoing or continued use. The patient well traveled, not out of the country since 2002, again the patient retired after 27 years of active duty, retiring in 1994. The patient is with 3 children, 2 are and 1 is alive, the 2 children passing from motor vehicle accident, and 1 child alive at 62-year- old, this is a boy, and then an adopted son at 43, 2 grandchildren and no great grandchildren. REVIEW OF SYSTEMS: Is unremarkable except that noted within the HPI. The patient's most recent blood pressure prior to September in May of 2019 noted to be 120/62, this is undertaken again with angiotensin receptor mary carmen and beta mary carmen. Most recent set of lipids in May, total cholesterol 136 and LDL at 63. Most recent PSA is 0.080, most recent H H at 13.6 and 41.6, with low ferritin and total iron at 101. The patient having had an EGD colonoscopy in per the General Surgery Service, but this was an incomplete evaluation and examination. The patient having an event monitor in March of 2019 for asymptomatic bradycardia, this being unremarkable. He is followed locally by Dr. 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 PHYSICAL EXAMINATION: VITAL SIGNS: As per chart noticeably markedly elevated blood pressure with bradycardia and increased ventricular ectopy. While at the bedside I witnessed a heart rate as low as 36 beats per minute with increased ventricular unifocal PVCs. Orthostatic vitals were not attempted during my examination. HEENT: Normocephalic, atraumatic. Pupils are equal and reactive to light and accommodation. NECK: Supple without lymphadenopathy or bruits. CARDIOVASCULAR: Bradycardic with ectopy. LUNGS: Clear to auscultation bilaterally. No wheezes, rhonchi or rales. ABDOMEN: Soft without tenderness, guarding or rigidity. EXTREMITIES: Benign without clubbing, cyanosis or edema. There is a posttraumatic laceration of the proximal left forearm. Simple wound care would be advised. NEUROLOGIC: Cranial nerves II-XII are grossly intact. The patient is alert and oriented x3 without any cognitive deficiencies. IMPRESSION: An 84-year-old gentleman with witnessed syncope. Differential diagnosis including the obvious symptomatic bradycardia, certainly orthostasis, either volume depletion or anemia mediated is also is considered in the differential diagnosis, although I doubt that this is the cause. The patient denies any active bleeding over the past several weeks. We did discuss the role of the right coronary artery with blood pressure and heart rate influences, although I do not suspect that it is right coronary mediated, this should be considered in the differential diagnosis as well. His last stress test noted to be April of 2018. I do think that carotid ultrasound and cardiac echocardiogram will be reasonable as well. We will be consulting with Cardiology with regards to further diagnostic workup considering that his stress test as of late has been unremarkable and his event monitor as of March 2019 was unremarkable as well, but certainly in light of his bradycardia and syncope one would question as to whether this warrants a pacemaker consideration. With regards to anemia, we have discussed historically reevaluating with an EGD and colonoscopy, again I am uncertain as to why general surgery attempted these in 2017, but it is also my understanding that the colonoscopy was an incomplete procedure. Full report and review of hospital record would be indicated. We will be checking an iron level. With regards to cyclical fevers he will be monitored for fever with standing order that should he spike a fever greater than 100.5 that blood cultures with be indicated. We talked about the differential diagnosis historically for unexplained fever including infection, autoimmune, or nonspecific inflammatory meeting, and even neoplastic disease. DISPOSITION: The patient and significant other understand the course of treatment and plan. No further issues at this time. We will perform rounds in the morning as discussed with the patient. cc: Tamir Parham,
[2019-10-19] MEDS: COLACE PO SCH ×2 (08:21→21:09)
[2019-10-19] MEDS: ASPIRIN PO SCH (08:21)
[2019-10-19] MEDS: PLAVIX PO SCH (08:21)
[2019-10-19] MEDS: NORVASC PO SCH (11:33)
[2019-10-19] MEDS: NS 1,000 ML IV SCH ×2 (11:33→21:59)
[2019-10-19] MEDS: APRESOLINE IV PRN ×2 (12:21→17:07)
[2019-10-19] MEDS ORDERED: VASOTEC IV ONE (12:54)
--- NOTE | 2019-10-19 14:43 | CONSULTATION ---
DATE OF CONSULTATION: 10/19/2019 IMPRESSIONS: 1. Syncope. 2. Sinus bradycardia with heart rate in the 50 beat per minute range with supraventricular ectopy. Current ECG interpreted as atrial fibrillation but is actually sinus rhythm with supraventricular ectopy. 3. Atherosclerotic coronary disease. A. Status post previous coronary angioplasty/stenting of the right coronary in 2004. B. Status post coronary angioplasty/stenting of right coronary artery in January 2019. 4. Recent Klebsiella pneumoniae urinary tract infection. 5. Dyslipidemia and metabolic syndrome. 6. Hypertension. 7. Prostate cancer. RECOMMENDATIONS: 1. Discontinue carvedilol as you have done. 2. Followup echocardiography and carotid Doppler study. 3. Continue to monitor on telemetry. If no significant bradycardia documented on telemetry ECG, it would be reasonable for patient to be discharged with plans for a 30 day event recorder and follow up with Dr. 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 HISTORY: This 84-year-old white male with a past history of atherosclerotic coronary disease, dyslipidemia/metabolic syndrome, chronic tendency for bradycardia with supraventricular ectopy, and recent urinary tract infection was admitted yesterday p.m. after episode of syncope. He went to [employer] yesterday morning and after lunch he went to [place] with his shopping for [employer]. They returned back and stopped off at [facility] to fill up with gas. He walked around the car to the gas pump and then started to feel unusual. He describes some flushing as well as some sensation of tingling. This was followed shortly thereafter by lightheadedness. His assisted him and relates that he said his had become aware that something was wrong, went to his aid, and he had syncope. She assisted him as best possible, but he did suffer a laceration on his left elbow. There was no associated chest pain or palpitations. There was no observed seizure activity or incontinence. He had a remote episode of syncope a good number of years ago. PAST MEDICAL HISTORY: 1. Atherosclerotic coronary disease, as outlined above. 2. Hypertension. 3. Dyslipidemia/metabolic syndrome. 4. Prostate cancer. 5. Hiatal hernia. 6. Cervical spine spondylosis. 7. Hypothyroidism. 8. Low B12. 9. Recent urinary tract infection with Klebsiella pneumoniae. ALLERGIES: He has no known drug allergies. MEDICATIONS: Medications prior admission as listed. SOCIAL HISTORY: He is retired from 27 years in the [employer]. 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 He drinks very infrequent beer. He does not smoke. FAMILY HISTORY: Negative for premature coronary disease and positive for prostate cancer with older age of clinical onset. REVIEW OF SYSTEMS: Pulmonary: Noncontributory. Gastrointestinal: Noncontributory. Constitutional: Noncontributory. Remainder of review of systems negative/noncontributory with 14 total systems reviewed. PHYSICAL EXAMINATION: General: Reveals a pleasant, older white male in no distress. Vital signs: Blood pressure 176/88, heart rate 57 to 63 with ECG monitor showing sinus rhythm with frequent supraventricular ectopy, oxygen saturation 97% on room air. HEENT: Extraocular movements appear intact. Mucous membranes moist. Neck: Supple without jugular venous distention. There are no carotid bruits. Chest: Clear to auscultation. Cardiac exam: Reveals a regular rate and rhythm with occasional extrasystole. No murmur or gallop could be appreciated. Abdomen: Soft. Bowel sounds are normal. Extremities: Without edema. Neurologic: Reveals him to be alert and fully oriented. Speech is fluent. He moves all 4 extremities equally well. Skin: Warm and dry. Psychiatric: Reveals his mood to be appropriate. PERTINENT DATA: Twelve lead EKG demonstrates sinus bradycardia with occasional premature supraventricular complex and first-degree AV block. LABORATORY DATA: Includes a white blood cell count of 6.7 hematocrit 38.4, hemoglobin 12.0, platelet count 172,000. Protime 13.6, INR 1.03, PTT 30. Sodium 142, potassium 4.2, chloride 105, carbon dioxide 25, BUN 18, creatinine 1.0, glucose 96. Troponin T less than 0.01. TSH 7.17, free T4 5.74. cc: MD Tamir Garcia,
--- NOTE | 2019-10-19 15:54 | ECHO REPORT ---
ORDER DATE: 10/19/2019 INTERPRETING PHYSICIAN: Dr. Mc Ardon ECHOCARDIOGRAPHIC MEASUREMENTS: 1. Interventricular septum: 1.4 cm. 2. Left ventricular posterior wall: 1.4 cm. 3. Diastolic diameter: 4.8 cm. 4. Left atrium: 4.5 cm. 5. Aorta: 3.7 cm. SUMMARY OF THE 2-DIMENSIONAL IMAGIN. Aortic valve leaflets are trileaflet, mildly sclerosed, opening normally. 2. Pulmonic valve was normal. 3. There is mild pulmonary regurgitation. 4. Mitral valve was normal. 5. Tricuspid valve was normal. 6. There is mitral annular calcification. 7. Atrial fibrillation was noted. 8. Normal left ventricular cavity size. 9. Concentric left ventricular hypertrophy. 10. Estimated ejection fraction of 60%.. 11. There is biatrial enlargement. 12. There is mild mitral regurgitation. 13. Peak velocity across the aortic valve less than 2 meters per second. 14. There is no aortic stenosis. 15. There is mild aortic regurgitation. 16. There is mild tricuspid regurgitation. 17. Peak velocity across the tricuspid valve was 3.3 meters per second. 18. Pulmonary systolic pressure of 54 mmHg. 19. There is no pericardial effusion. cc: MD Tamir Ortiz DO
[2019-10-19] MEDS ORDERED: ATIVAN IV ONE (18:42)
[2019-10-19] MEDS ORDERED: LINZESS PO ONE (20:00)
[2019-10-19] MEDS: VASOTEC IV SCH (21:08)
[2019-10-19] MEDS: LIPITOR PO SCH (21:09)
--- NOTE | 2019-10-19 21:17 | PROGRESS NOTE ---
DATE: 10/19/2019 SUBJECTIVE: Hospital day #2. Patient admitted for symptomatic bradycardia. Over the past 24 hours the patient has demonstrated a heart rate between 52 and as high as 73. No more episodes of sinus bradycardia or sinus pause. However, there was a witnessed at 36 to 39 in the emergency room last night by myself. OBJECTIVE: Vital Signs: This evening, blood pressure is 156/76, respirations 22, pulse at 72, saturating 97% on room air. Intake 2400 and output 1950, this admission, for a plus 450. HEENT: This morning, on rounds, HEENT is unremarkable. Cardiovascular: Regular rate and rhythm with occasional PVC/ectopic beat. Lungs: Clear. Abdomen: Soft. Nonspecific bloating and distention is noted but without tenderness, guarding, or rigidity. Extremities: Benign. Neurological: Cranial nerves II-XII are grossly intact. LABORATORY: No additional laboratory is ordered when compared to admission last night. Today, the patient has seen Cardiology. There has been a cardiac echo as well as carotid ultrasound. Cardiology is recommending discharging patient with output event monitor for 30 days. Fortunately, he had this seem procedure done back in March that was unremarkable. He is currently off of his beta-mary carmen and this might be resulting in less bradycardia. ADDITIONAL REPORTS TODAY: Including a cardiac echo demonstrating a trileaflet aortic valve with mild early sclerosis, mild pulmonary regurgitation, normal mitral and tricuspid valve, and atrial fibrillation is noted. LVH is noted. Ejection fraction at 60%. Pulmonary pressure noted to be elevated at 54 mmHg. Consultative note is reviewed. IMPRESSION: 1. Syncopal event. Etiology is queried. Presumed to be bradycardia mediated. Patient having had a CT scan on admission which is unremarkable. We did discuss further diagnostic workup, especially as it relates to issues related to syncope - I do not feel that an EEG, Neurology consultation, or an MRI of the head would be helpful during this admission but it should be considered as we move forward. I am also not confident that a 30-day event monitor will produce the information needed to explain the patient's syncope but since this procedure has already been done as recently as March, perhaps an EEG and MRI of the head to be certain, would not be unreasonable. These will be ordered. 2. With regards to postprandial flushing, certainly variation in the blood pressure and heart rate might be secondary to some type of neuroendocrine tumor such as pheochromocytoma or even carcinoid. We will be starting 24-hour urine for metanephrines and 5 HIAA compound. Catecholamines and VMA will also be measured. We have avoided beta-blockers secondary to symptomatic bradycardia last night and his pressure has rebounded accordingly. We have also stopped the angiotensin receptor mary carmen secondary to potential interaction with IV HOLLIS inhibitor. We will be scheduling IV enalapril every 6-8 hours, 1.25 mg IV to see if this provides him any additional blood pressure control. Cardiology has started the patient on a calcium channel mary carmen. No new and/or additional concerns at this time. I have been notified by the hospital this evening that the hospital is on disaster protocol and the patient will need to be moved to a regular floor. Will continue to follow clinically in this regard. I have also spoken to the patient's significant other/partner. No new and/or additional recommendations at this time. cc: DO CHRISTIANNE Lombardo
--- NOTE | 2019-10-20 07:22 | EKG Report ---
Test Performed on : 10/20/2019 07:04:18 AM Test Reason : Syncope bradycardia Blood Pressure : / mmHG Vent. Rate : 063 BPM Atrial Rate : 063 BPM P-R Int : 236 ms QRS Dur : 086 ms QT Int : 420 ms P-R-T Axes : 071 -16 022 degrees QTc Int : 429 ms Sinus rhythm. with marked sinus arrhythmia. with 1st degree AV block. Otherwise normal ECG When compared with ECG of 18-OCT-2019 21:49, (Unconfirmed) Sinus rhythm. has replaced Atrial fibrillation. Confirmed by Santos DIXON, Jared ([id number]) on 10/20/2019 8:21:39 AM
[2019-10-20 08:10] LABS: BASO# 0.06 X1000 (0.0-0.2); BASO% 0.8 % (0.0-0.8); EOS# 0.21 X1000 (0.0-0.7); EOS% 2.7 % (0.0-10.0); HEMATOCRIT 41.4 % (42.0-52.0); HEMOGLOBIN 12.8 g/dL (14.0-18.0); LYMPH# 1.52 X1000 (1.2-3.4); LYMPH% 19.3 % (20.5-51.1); MCHC 30.9 g/dL (33-37); MCV 93.7 FL (81-99); MONO# 1.04 X1000 (0.11-0.59); MONO% 13.2 % (1.7-9.3); MPV 11.8 FL (7.4-10.4); NEUT# 5.05 X1000 (1.4-6.5); PLT 178 X1000 (130-400); RBC 4.42 XMIL (4.7-6.1); RDW 14.2 % (11.5-14.5); WBC 7.88 X1000 (4.8-10.8)
[2019-10-20 08:46] LABS: AGAP 14; ALB/GLOB RATIO 1.4; ALBUMIN 3.6 g/dL (3.5-5.0); ALKALINE PHOSPHATASE 81 U/L (32-122); BUN 16 mg/dL (8-22); CALCIUM 8.9 mg/dL (8.8-10.2); CHLORIDE 107 mmol/L (98-107); COSMO 286; CREATININE 1.1 mg/dL (0.7-1.2); ESTIMATED GFR > 60; GLUCOSE 96 mg/dL (70-104); GOT 15 U/L (10-34); GPT 12 U/L (10-44); POTASSIUM 4.3 mmol/L (3.5-5.1); SODIUM 143 mmol/L (136-145); TCO2 22 mmol/L (25-35); TOTAL BILIRUBIN 0.48 mg/dL (0.20-1.00); TOTAL PROTEIN 6.1 g/dL (6.3-8.3)
--- NOTE | 2019-10-20 09:36 | Diag Imaging Result Doc PS360 ---
EXAM: MRI BRAIN W/WO CONTRAST 10/20/2019 HISTORY: Syncope and JARA TECHNIQUE: T1 sagittal and axial, post gadolinium-enhanced axial with coronal reformation, axial T2, FLAIR, DWI and coronal gradient echo. COMMENT: There are no previous MRI studies. There is no evidence of mass effect, bleed, or abnormal extra-axial fluid collection. There is no evidence of restricted diffusion. There is no evidence of abnormal gadolinium enhancement. IMPRESSION: No evidence of acute intracranial disease. Electronically signed by Miles Quezada 10/20/2019 9:34 AM
[2019-10-20] MEDS: COLACE PO SCH ×2 (09:48→21:09)
[2019-10-20] MEDS: NORVASC PO SCH (09:48)
[2019-10-20] MEDS: ASPIRIN PO SCH (09:49)
[2019-10-20] MEDS: PLAVIX PO SCH (09:49)
[2019-10-20] MEDS: VASOTEC IV SCH (09:50)
[2019-10-20] MEDS: NS 1,000 ML IV SCH (10:01)
[2019-10-20] MEDS ORDERED: LINZESS PO ONE ×2 (21:02→22:30)
[2019-10-20] MEDS: LIPITOR PO SCH (21:09)
--- NOTE | 2019-10-21 01:21 | PROGRESS NOTE ---
DATE: 10/20/2019 SUBJECTIVE: This is hospital day #3, patient having been admitted witnessed syncope, ongoing medical management for same. He continues on telemetry. Cardiology consultation and some additional laboratory and diagnostic imaging today, including carotid studies, report is pending, an MRI which was discussed at the bedside and is noted to be unremarkable, and a 24-hour urine for pheochromocytoma screen as well as carcinoid screening. I had discussion at the bedside tonight with patient regarding progress today. I am still of the opinion, things being common, that his bradycardic event resulted in a syncopal episode over the weekend. He has since been stopped on his beta blockade. He has not had any heart rates in the 30s or below 40. His blood pressure appears to be improved with scheduled IV HOLLIS inhibitor. OBJECTIVE: Vital signs: Blood pressure this afternoon of 157/70, respirations 20, heart rate at 67, ranging between 52 and 81. In's and Out's cumulatively during this hospitalization, 3700 in and 2150 out for +1.55 L. Laboratory: For today demonstrating hemoglobin and hematocrit at 12.8 and 41.4, with platelets at 178. Chemistry demonstrating sodium 143, potassium 4.4, chloride 107, bicarb at 22, BUN and creatinine at 16 and 1.1. AST and ALT are normal. The patient's blood culture noted to be negative at 48 hours, these are dated 10/18/2019. HEENT: Normocephalic, atraumatic. Pupils are equal and reactive to light and accommodation. Neck: Soft and supple without lymphadenopathy or bruits. Cardiovascular: Regular rate and rhythm without murmurs, gallops, or rubs. Lungs: Clear to auscultation bilaterally. No wheezes, rhonchi or rales. Extremities: Benign with the exception of posttraumatic/open wound of the left lateral elbow. Neurologic: Cranial nerves 2 through 12 are grossly intact. Patient is alert and oriented x3 without any cognitive deficiencies. IMPRESSION: An 84-year-old with witnessed syncope. Patient has been stopped on beta mary carmen, which may exacerbate bradycardia. He has been transitioned to a calcium channel mary carmen as well as IV HOLLIS inhibitor. We will be transitioning him to oral lisinopril 10 mg with low threshold to titrate up to 20 mg if indicated. MRI is noted to be unremarkable. Cardiac echo is reviewed, explained and compared to previous cardiac echo dated 2017, there appears to be the development of pulmonary hypertension of undetermined clinical significance and some early LVH. I have explained to the patient that once the screening test for carcinoid and pheochromocytoma have been completed in the form of a 24-hour urine, that it is my opinion that he is stable for discharge. We discussed discharging him tomorrow late morning or early afternoon with interval follow up after the holiday. We will be out of the office the week of and we will try to see the patient the week of in followup. All the patient's questions and concerns are addressed and answered. No further issues at this time. Total time spent at the patient's bedside in discussion and review approximately 60 minutes. No further issues at this time. cc: Tamir Parham DO
--- NOTE | 2019-10-21 01:35 | PROGRESS NOTE ---
DATE: 10/20/2019 SUBJECTIVE: Patient continues asymptomatic from a cardiovascular standpoint. He remains in sinus rhythm with first degree AV block, according to telemetry. Cannot find any clear episodes of atrial fibrillation. OBJECTIVE: Vital Signs: Blood pressure 157/70, heart rate 67 with ECG monitor showing sinus rhythm with first degree AV block. Oxygen saturation 98% on room air. Neck: There is no significant jugular venous distention. Chest: Clear to auscultation. Cardiac: Reveals a regular rate and rhythm without appreciable murmur or gallop. There is no evidence of peripheral edema. LABORATORY DATA: Includes white blood cell count of 7.88, hematocrit 41.4, hemoglobin 12.8, platelet count 178,000. Sodium 143, potassium 4.3, chloride 107, carbon dioxide 22, BUN 16 creatinine 1.1. Glucose 96. TSH 7.17, T4 of 5.74. Echocardiography indicates normal left ventricular ejection fraction, mild aortic regurgitation demonstrated as well as mild mitral regurgitation. Biatrial enlargement also reported. IMPRESSION: 1. Recent syncopal episode. Possibly vasovagal episode but patient has demonstrated bradycardia which seems improved since discontinuation of carvedilol. 2. Chronic tendency for sinus bradycardia. 3. Atherosclerotic coronary disease. Patient continues without angina. He is status post previous coronary angioplasty/stenting of the right coronary in 2004 and repeat coronary angioplasty/stenting of the right coronary artery in January 2019. 4. Recent Klebsiella pneumoniae urinary tract infection. 5. Dyslipidemia and metabolic syndrome. 6. Hypertension. RECOMMENDATIONS: 1. Continue to monitor on telemetry. 2. Leave off carvedilol. 3. Go ahead and pursue exercise sestamibi study to confirm stable coronary perfusion as well as observe patient's heart rate response to exercise. 4. If patient continues without significant bradycardia or pause and stress study is negative, it would reasonable for him to be discharged tomorrow to have 30-day event recorder. Event recorder will certainly allow us to promptly recall him in the event that an alert is forwarded from his event recorder. cc: MD Tamir Garcia,
[2019-10-21] MEDS ORDERED: CELEXA PO SCH (09:00)
[2019-10-21] MEDS ORDERED: VITAMIN B-12 PO SCH (09:00)
[2019-10-21] MEDS ORDERED: PRINIVIL PO SCH (09:00)
--- NOTE | 2019-10-21 12:22 | Carotid Study ---
DATE: 10/19/2019 REQUESTING PHYSICIAN: Dr. Parham. GROUNDS MAINTENANCE SUPERVISOR: Tenzin. INDICATIONS: Syncope. EQUIPMENT: [employer] Vivid E9 ultrasound system with a 9 L-D transducer. FINDINGS: Complete diagram ultrasound image can be seen scanned in the patient's medical record. The peak systolic velocity noted on the right side is noted to be 42 at the distal internal carotid artery. The peak systolic velocity noted on the left side is noted to be 88 at the distal internal carotid artery. The calculated internal common ratio on the right is 0.84, on the left 0.78. Calculated stenosis on the right 0% to 39%, left 0% to 39%. There is some mild atherosclerosis, but at this time, it does not produce hemodynamically significant flow-limiting stenosis. Both vertebral arteries were antegrade flow. INTERPRETATION: By strict velocity criteria, no hemodynamically significant flow-limiting stenosis noted. cc: MD Tamir Saenz, DO
[2019-10-21] MEDS: NORVASC PO SCH (13:28)
[2019-10-21] MEDS: ASPIRIN PO SCH (13:28)
[2019-10-21] MEDS: COLACE PO SCH (13:28)
[2019-10-21] MEDS: PLAVIX PO SCH (13:29)
--- NOTE | 2019-10-21 14:06 | Diag Imaging Result Document ---
PROCEDURE NAME: MYOCARDIAL PERF SCAN, STR/REST - 10/20/2019 PROCEDURE: Exercise Cardiolite stress test. SUMMARY: The patient exercised on Kasi protocol for 5 minutes 16 seconds to a peak heart rate of 155; 113% predicted maximal heart rate achieved, 95% exercise capacity. Baseline blood pressure was 151/78. At target heart rate, blood pressure was 200/78. There was no chest pain. Electrocardiogram revealed frequent premature ventricular beats. PVCs in bigeminy were noted. Couplets were seen. There was no ventricular tachycardia. There was a [address] depression in the lateral leads at target heart rate positive for ischemia. ST depression normalized in a minute of recovery. However, in the recovery phase, frequent PVCs and couplets were also noted. Cardiolite was injected. Gated SPECT images were obtained in standard views. 37 millicuries of Cardiolite was injected for the stress phase; 12.1 mCi of Cardiolite was injected for the rest phase. Normal left ventricular cavity size. Normal myocardial perfusion. Left ventricular ejection fraction by gated SPECT was 65%. CONCLUSIONS: 1. No chest pain. 2. Positive exercise stress electrocardiogram suggestive of ischemia. 3. Frequent premature ventricular contractions in bigeminy and couplets were noted. There was no ventricular tachycardia. 4. Normal myocardial. 5. Left ventricular ejection fraction by gated SPECT was 65%. cc: MD Scout Ortiz MD
[2019-10-21 14:19] VITALS: BP 136/73
--- NOTE | 2019-10-21 20:54 | GASTROENTEROLOGY CONSULTATION ---
DATE: 10/21/2019 REASON FOR CONSULTATION: History of iron-deficiency anemia. HISTORY OF PRESENT ILLNESS: This is a 84-year-old male who came into the hospital after a syncopal episode. The patient was currently gone, for cardiac stress testing at the time of my rounds. I did speak with his , who was in his room. She states on Saturday they had gone to jehovah's witness. They went to [place], shopping. On the way back to [place] they had stopped to get gas. The patient was outside pumping gas, when he was having trouble with the cardiac rn. His got out of the car to help him and while she was standing there the patient passed out. The patient was brought into the emergency room and was found to be in bradycardia. The patient has had cardiac evaluation, and as noted the patient is currently down for cardiac stress testing at the time of my rounds. The patient had denied recent problems with abdominal pain. She did state the patient had been having constipation and usually takes a Dulcolax or Fleets enema as needed, but he does not take a regular laxative on a daily basis. She states he has not had a bowel movement since last Saturday. The patient has had EGD and colonoscopy in the past. Records reviewed from the hospital showed his last EGD and colonoscopy was in 08/2017. He had a laparoscopic cholecystectomy on 08/08/2017, then 08/09/2017 he had an EGD and colonoscopy by Dr. Moctezuma. Findings per record showed hiatal hernia with tortuous esophagus, gastritis, diverticulosis, and tortuous colon, and a poor prep. PAST MEDICAL HISTORY: Metabolic syndrome, iron-deficiency anemia, dyslipidemia, coronary artery disease, history of cardiovascular stent in 2004 and 2018, history of vitamin D deficiency, constipation, history of prostate cancer, hypothyroidism, spondylosis. PAST SURGICAL HISTORY: Cardiovascular stents in 2004 and 2018, prostate biopsy in 2018, hernia repair, last EGD and colonoscopy 08/2017. ALLERGIES: No known drug allergies. HOME MEDICATIONS: Aspirin 81 mg daily; Lipitor 20 mg every night; Coreg 3.125 twice a day; Celexa 20 mg daily; Plavix 75 mg daily; vitamin B12 one daily; vitamin D 50,000 units as directed; Cozaar 50 mg twice a day. SOCIAL HISTORY: He is . He has 3 children, two . He is retired from the [employer]. He denies tobacco or alcohol use. REVIEW OF SYSTEMS: Per history of present illness. Information is obtained from the . The patient is down for cardiac testing at the time of my rounds. PHYSICAL EXAMINATION: Vital signs: Temperature 97.3 degrees, pulse 78, respirations 21, blood pressure 136/73. As noted, the patient has gone for cardiac testing. LABORATORY DATA: Hematology: WBC 7.88, hemoglobin 12.8, hematocrit 41.4, MCV 93.7, platelets 178,000. Coagulation: Pro time 13.6, INR 1.03, PTT 30.0. Chemistry: Sodium 143, potassium 4.3, chloride 107, CO2 of 22, BUN 16, creatinine 1.1, glucose 96, calcium 8.9. Iron 49, TIBC 302, percent saturation 16. Total bilirubin 0.48, AST 15, ALT 12, alkaline phosphatase 81, total protein 6.1. Urinalysis was negative. ASSESSMENT AND PLAN: 1. Syncopal episode. 2. Bradycardia. 3. History of coronary artery disease and history of cardiovascular stent placement. The patient is currently undergoing cardiac testing. 4. Iron-deficiency anemia. The patient's hemoglobin and hematocrit are only slightly low, 12.8 and 41.4. He does have low iron. Recommend current medications. 5. Constipation. We will add MiraLAX twice daily to his Colace. Further plans to be made according to his progress. As far as Gastroenterology is concerned, would finish out cardiac testing. The patient is not having active gastrointestinal bleeding. Would not proceed with esophagogastroduodenoscopy or colonoscopy at this time. He had esophagogastroduodenoscopy and colonoscopy in 2017. For iron- deficiency anemia, would discuss esophagogastroduodenoscopy procedure as an outpatient. We will continue to follow during his hospital course and further plans will be made according to his progress. Thank you for this consultation. I have discussed this case with Dr. Handy. Dictated by TREVER Aguayo for Michael Handy MD cc: TREVER Davis MD Jeffrey A. Johnson, DO
[2019-10-21] MEDS ORDERED: MIRALAX PO SCH (21:00)
--- NOTE | 2019-10-21 21:40 | GASTROENTEROLOGY CONSULTATION ---
DATE: 10/21/2019 ADDENDUM: The patient is seen with Franchesca Stern. Chart reviewed and case was discussed. IMPRESSION: Near syncopal episode apparently, secondary to severe bradycardia. Cardiac evaluation and workup is in progress. Changes have been made in medications. Gastroenterology consult was obtained for constipation and iron deficiency. PLAN: The plan would be to get his cardiac condition stabilize before any gastrointestinal intervention, a scope, etc. I would continue him on MiraLAX twice a day, to help his constipation and the patient will be seen as an outpatient to pursue the gastroenterology workup for anemia. I have discussed the case with the family members and answered all their pertinent questions. cc: MD Tamir Curtis, DO
--- NOTE | 2019-10-22 16:48 | EKG Report ---
Test Performed on : 10/20/2019 8:11:00 PM Test Reason : syncope Blood Pressure : / mmHG Vent. Rate : 064 BPM Atrial Rate : 064 BPM P-R Int : 252 ms QRS Dur : 082 ms QT Int : 412 ms P-R-T Axes : 075 -19 019 degrees QTc Int : 425 ms Sinus rhythm. with sinus arrhythmia. with 1st degree AV block. Otherwise normal ECG When compared with ECG of 20-OCT-2019 07:04, No significant change was found Unconfirmed Result
--- NOTE | 2019-10-23 18:22 | EEG REPORT ---
DATE: 10/20/2019 COMMENT: This is a digitally recorded EEG on an 84-year-old patient with reported syncope, question of seizure. FINDINGS: During waking, low-amplitude, 8.5 to 9 Hz posterior rhythm is present bilaterally with uncertain reactivity to eye opening. Background contains polymorphic and rhythmic theta at low amplitude across the hemispheres symmetrically. Photic stimulation did not significantly alter the record. Hyperventilation was not done. Drowsing occurred with appearance of more generalized slowing. Stage 2 sleep was not recorded. No definite epileptiform discharge was identified. INTERPRETATION: Normal EEG. CORRELATION: The absence of epileptiform discharges on a single EEG does not exclude a clinical diagnosis of seizures, but there is nothing on this record to suggest the presence of a seizure disorder. cc: MD Tamir Gannon III, DO
--- NOTE | 2019-10-25 05:08 | DISCHARGE SUMMARY ---
ADMISSION DATE: 10/18/2019 DISCHARGE DATE: 10/21/2019 DISCHARGE DIAGNOSES: 1. Witnessed the syncope presumed to be a bradycardia mediated with heart rates below 40 in the emergency room. The patient now presenting on carvedilol. Recommending at the time of discharge, a 30-day event monitor. Patient had a 30-day event monitor in march which was noted to be unremarkable. 2. Anemia. Hemoglobin and hematocrit at 12 and 38. Iron deficient type with total iron at 49 and percent saturation at 16. We did discuss further diagnostic workup, including an EGD and a colonoscopy. Gastroenterology was consulted, recommending outpatient followup. 3. Postprandial flushing raising concern for pheochromocytoma versus carcinoid. A 24-hour urine screening for metanephrines, VMA and serotonin are pending at the time of discharge. PROCEDURES DURING ADMISSION: 1. CT scan of the head secondary to syncope obtained in the emergency room on 10/18/2019. No evidence of mass, bleed, or abnormality. 2. Cardiac echo demonstrating mild aortic sclerosis, normal ejection fraction, bilateral atrial enlargement and a PA pressure at 54 mmHg, consistent with pulmonary hypertension. 3. EEG on 10/20/2019 negative for seizure. 4. MRI of the brain on 10/20/2019, no acute abnormality. 5. Myocardial perfusion scan on 10/20/2019. 6. Exercise stress test with ST-segment depression in the lateral leads suggestive of ischemia. Frequent PVCs and bigeminy are noted. No mention of abnormalities within the perfusion scan. Clinical correlation is recommended. CONSULTATIONS: During admission including Gastroenterology, Cardiology. HOSPITAL COURSE: The patient was admitted for a witnessed syncopal episode while out in the community at a local gas station. He was brought in and found to be profoundly bradycardic. Based on patient's history of cardiovascular disease, it was felt that he would be best served with overnight observation. He continued initially bradycardic in the 50s and low 60s. His beta- mary carmen was stopped. He was transitioned to IV HOLLIS inhibitor secondary to hypertension. At the time of discharge, his blood pressure 136/73 on oral HOLLIS inhibitor. Gastroenterology and Cardiology were consulted for iron deficiency anemia and for any additional management considerations regarding the patient's cardiovascular status. Cardiac echo was obtained showing pulmonary hypertension and a stress test was positive for ST-segment changes suggestive of ischemia. The patient was without symptoms and the perfusion portion of the test is not dictated. Additional studies, including the carotid studies and MRI of the brain as well CT scan on admission were reviewed. No evidence of intracranial abnormality or hemodynamically significant vascular disease involving the carotid system were noted. DISCHARGE MEDICATIONS: The patient was discharged on the following medications: 1. Norvasc 5 mg once daily. 2. Aspirin 81 mg once daily. 3. Lipitor 20 mg once daily. 4. Celexa 20 mg once daily. 5. Plavix 75 mg once daily. 6. B12 replacement 5000 mcg once daily. 7. Colace 100 mg p.o. b.i.d. 8. Vitamin D replacement at 50,000 units once weekly. 9. Lisinopril 10 mg once daily. DISPOSITION: Patient will be seen in the clinic on the in followup as it relates to wound evaluation as well as correlation of home blood pressure monitor. Cardiology will be arranging for 30-day cardiac event monitor which will be mailed to the patient at some point in the next 7 to 10 days. The patient has been advised that should he have any other events to contact the Internal Medicine Clinic. We will follow up as an outpatient after the . The patient and significant other understand the course of treatment and plan. No further issues at this time. cc: Tamir Parham DO
--- NOTE | 2019-10-28 15:30 | PROVIDER DOCUMENTATION ---
This chart was entered by Becky Doherty Scribe, acting as scribe for Joseph Acosta MD. HPI-Syncope/Dizziness - General Chief Complaint: Syncope Stated Complaint: PASSED OUT, DIZZY Time Seen by Provider: 10/18/19 17:01 Source: patient, family Allergies/Adverse Reactions: Patient Allergies Allergy/AdvReac Type Severity Reaction Status Date / Time No Known Allergies Allergy Verified 03/05/19 10:34 Home Medications: Home Medication List Medication Instructions Recorded Confirmed Last Taken Type Aspirin 81 mg PO DAILY 01/19/13 10/18/19 03/05/19 History Clopidogrel Bisulfate [Plavix] 75 mg PO DAILY 04/01/18 10/18/19 03/05/19 History Atorvastatin Calcium [Lipitor] 20 mg PO QHS 03/05/19 10/18/19 03/04/19 History Ergocalciferol (Vitamin D2) 50,000 unit PO DIRECTED 06/05/19 10/18/19 Unknown History [Vitamin D] Cyanocobalamin (Vitamin B-12) 1 tab PO DAILY 10/18/19 10/18/19 Unknown History [Vitamin B12] Citalopram [Celexa] 20 mg PO DAILY 10/20/19 10/20/19 10/18/19 08:00 History 20mg Amlodipine [Norvasc] 5 mg PO DAILY #30 tab 10/21/19 Unknown Rx Docusate Sodium [Colace] 100 mg PO BID cap 10/21/19 Unknown Rx LISINOpril [Prinivil] 10 mg PO DAILY #30 tab 10/21/19 Unknown Rx - History of Present Illness-Syncope/Dizzy Nature of Presenting Problem: Patient is an 84 y/o male presenting to the ED today c/o syncope. Patient reports he had a syncopal episode and fell at a gas station immediately prior to arrival. Patient reports he was unconscious for 2-3 minutes. Patient states he was recently involved in cardiac rehab at [facility] for recurrent episodes of bradycardia. Patient states he sees Dr. Brady for cardiology but that his new medications to manage his heart rate have been on back order so he has not been taking them. Patient reports he has had cardiac stents placed in the past as well as a loop recorder device placed in March. Patient takes a beta mary carmen and HOLLIS inhibitor daily. Patient c/o headache over left temporal region but reports he has had some sinus troubles for the last few months. Patient sees Dr. Parham as his PCP but has only recently established. Patient denies history of seizures. Patient denies all other signs/symptoms. Prior Episodes: reports: single episode today Onset/Duration: reports: just prior to arrival Timing: reports: resolved prior to arrival Position/Activity at time of episode: reports: standing Symptoms prior to episode: reports: headache (left temporal) Context: reports: lost consciousness, collapsed Loss of Consciousness: prolonged (minutes) (2-3 minutes) Location of injury. (If syncope resulted in an injury.): reports: RUE (elbow) Current Symptoms: reports: headache Recently Seen Here or By Another Healthcare Provider: No - Dizziness Dizziness Related Current/Associated Symptoms: reports: headache, syncope Any recent trauma/injury?: reports: none Modifying Factors: improves with: nothing Patient usually:: reports: walks without assistance Review of Systems - Adult - REVIEW OF SYSTEMS - ADULT Constitutional: denies: chills, fever Eyes: reports: no symptoms reported Ears, Nose, Mouth & Throat: denies: ear pain Cardiovascular: reports: syncope. denies: chest pain, irregular heart rate, palpitations Respiratory: denies: cough, shortness of breath Gastrointestinal: reports: no symptoms reported Genitourinary: reports: no symptoms reported Musculoskeletal: reports: no symptoms reported Integumentary: reports: no symptoms reported Neurological: reports: headache/migraines, syncope. denies: loss of balance, numbness, paresthesia, seizure, slurred speech Psychiatric: reports: no symptoms reported Endocrine: reports: no symptoms reported Hematologic/Lymphatic: reports: no symptoms reported Allergic/Immunologic: reports: no symptoms reported Past History - Adult - PAST MEDICAL HISTORY-ADULT Review of Records: reports: Old Records Reviewed Major Childhood Illnesses: reports: denies history Cardiovascular: reports: CAD, HTN, hyperlipidemia Respiratory: reports: denies history Gastrointestinal: reports: denies history Genitourinary: reports: prostate cancer Musculoskeletal: reports: denies history Neurological: reports: denies history Psychiatric: reports: denies history Endocrine/Immune: reports: denies history Other Conditions: reports: denies history - PRIOR SURGERIES/PROCEDURES Surgical/Procedure History: reports: appendectomy, cardiac stent - IMMUNIZATION STATUS Childhood Immunizations: See Nurse Assessment Flu Vaccine: See Nurse Assessment - FAMILY HISTORY Family History: reviewed, not pertinent Physical Exam-General - PHYSICAL EXAM-ADULT Initial Vital Signs Reviewed: Yes - CONSTITUTIONAL General Appearance: appears well, alert, no apparent distress - EYES Eyes: PERRL/EOMI - HEAD, EARS, NOSE, MOUTH & THROAT HENMT: normocephalic/atraumatic, moist mucous membranes - NECK Neck: full range of motion, supple - RESPIRATORY Respiratory: lungs clear, normal breath sounds, no respiratory distress, no accessory muscle use - CARDIOVASCULAR Cardiovascular: no edema, no gallop, no murmur, bradycardia - GASTROINTESTINAL (ABDOMEN) Abdominal Exam: normal bowel sounds, non tender, soft - MUSCULOSKELETAL Back Exam: no CVA tenderness, no vertebral tenderness Extremity: normal range of motion, non-tender, normal gait, no pedal edema, other (abrasion on right elbow secondary to fall) - SKIN Integumentary: normal color, normal turgor, warm/dry, abrasion(s) (on right elbow) - NEUROLOGIC Neurologic: grossly normal - PSYCHIATRIC Psych/Mental Status: normal mood/affect, normal thought content, normal thought process, oriented x 3 Progress - PLAN OF CARE/RESULTS Progress/Plan/Lab Results: Orders Category Date Time Status Admit - [facility] Routine AdmDCTranf 10/18/19 20:23 Active Activity - Strict Bedrest ORDERED Care 10/18/19 20:23 Active Apply Mechanical Device [QM] ORDERED Care 10/18/19 20:31 Completed Cardiac Monitoring DIRECTED Care 10/18/19 16:46 Completed Finger Stick Blood Sugar (ED) DIRECTED Care 10/18/19 16:46 Completed IV Insertion ONCE Care 10/18/19 20:23 Completed Intake and Output-Strict ORDERED Care 10/18/19 20:29 Active Notify MD if DIRECTED Care 10/18/19 20:29 Active Nursing [Misc. NRSG Communication Order] DIRECTED Care 10/18/19 20:34 Active Nursing- MD Consult Request ROUTINE Care 10/18/19 20:30 Completed Resuscitation Status Routine Care 10/18/19 20:23 Completed Saline Loc NOW Care 10/18/19 16:46 Completed Vital Signs Order Q 4-HR ASSESS Care 10/18/19 20:23 Active Z-Document. for Tele Applied ORDERED Care 10/18/19 20:28 Completed Physician/Provider Consults Routine Cons 10/18/19 20:23 Ordered Heart Healthy Diet Diet 10/18/19 20:29 Completed CHEST-PORTABLE [RAD] Stat Exams 10/18/19 16:[address] HEAD W/O CONTRAST [CT] Stat Exams 10/18/19 16:38 Completed BLOOD CULTURE [BLDCUL] Routine Lab 10/18/19 21:24 Completed CBC WITH ELECTRONIC DIFF [HEME] Stat Lab 10/18/19 17:13 Completed COMPREHENSIVE METABOLIC PANEL [CHEM] Stat Lab 10/18/19 17:13 Completed PROTIME WITH INR [COAG] Stat Lab 10/18/19 17:13 Completed PTT [COAG] Stat Lab 10/18/19 17:13 Completed SED RATE [HEME] Stat Lab 10/18/19 17:13 Completed T4 Stat Lab 10/18/19 17:13 Completed TROPONIN T Stat Lab 10/18/19 17:13 Completed TSH Stat Lab 10/18/19 17:13 Completed UIBC W TOTAL IRON [CHEM] Urgent Lab 10/18/19 17:13 Completed URINALYSIS W/POSS RFLX CULT [URINALYSIS] Stat Lab 10/18/19 18:36 Completed 0.9% Sodium Chloride Inj [Ns] 1,000 ml Med 10/18/19 20:30 Discontinued IV 75 mls/hr ATORVAstatin [Lipitor] Med 10/18/19 21:00 Discontinued 20 mg PO QHS Acetaminophen [Tylenol] Med 10/18/19 20:23 Discontinued 650 mg PO Q6H PRN PRN Aspirin Med 10/19/19 09:00 Discontinued 81 mg PO DAILY Clopidogrel [Plavix] Med 10/19/19 09:00 Discontinued 75 mg PO DAILY Docusate Sodium [Colace] Med 10/18/19 21:00 Discontinued 100 mg PO BID Ergocalciferol (Vitamin D2) [Vitamin D] Med 11/04/19 09:00 Discontinued 50,000 unit PO Q30D Losartan [Cozaar] Med 10/18/19 21:00 Discontinued 50 mg PO BID Ondansetron [Zofran] Med 10/18/19 20:23 Discontinued 4 mg IV Q6H PRN PRN Telemetry [OM.EQ] Stat Oth 10/18/19 20:23 Active EKG [EKG] Stat Ther 10/18/19 16:46 Draft Transfer/Admit Order [TRANSFER] Routine Transfer 10/18/19 20:37 Completed Result Diagrams: 10/20/19 07:08 10/20/19 07:08 - EKG 1 Time of EKG reading by physician:: 21:49 EKG Read and Signed by:: Matt Aviles EKG Interpretation (*Must complete 3 of following elements*): Normal Rate: 50 Rhythm: Sinus bradycardia with sinus arrhythmia with 1st degree AV block - XRAY 1 XRAY Study: Chest Impression: See EMR Report (EXAM: CHEST-PORTABLE 10/18/2019 HISTORY: syncopal episode/confusion TECHNIQUE: AP portable at 1653 COMMENT: There is a large hiatal hernia. There is platelike opacity in both costophrenic angles. IMPRESSION: Hiatal hernia. Bibasilar atelectasis. Electronically signed by Miles Quezada 10/18/2019 4:55 PM 10/18/195 Interpreting Physician: Miles Quezada MD Dictated Date/Time: 10/18/191653 cc: Joseph Acosta MD; Tamir Parham DO) - CT/MRI 1 CT Study: Head Impression: See EMR Report (EXAM: CT HEAD W/O CONTRAST 10/18/2019 HISTORY: syncope TECHNIQUE: This exam was performed using automated exposure control, adjustment of mA or kV according to patient size, and/or use of iterative reconstruction technique. COMMENT: There is no evidence of mass effect, bleed, or abnormal extra-axial fluid collection. The visualized paranasal sinuses are clear. The calvarium is intact. IMPRESSION: No evidence of acute intracranial disease. Electronically signed by Miles Quezada 10/18/2019 4:53 PM 10/18/191652 Interpreting Physician: Miles Quezada MD Dictated Date/Time: 10/18/191651 cc: Joseph Acosta MD; Tamir Parham DO) Departure - Departure Date of Disposition Decision: 10/18/19 Time of Disposition Decision: 19:15 DIAGNOSIS: Syncope and collapse, Bradycardia Disposition: ADMITTED INPATIENT 09 Certified Medical Emergency: Emergent Condition: Serious - Critical Care Note This patient required my direct & personal management of CC.: No Attestation - Physician/ ASHLY Attestation Patient care was provided by Advanced Practice Provider:: No The physician spent face to face time with patient:: Yes Advanced Practice Provider documentation review:: Supervising physician onsite and consulted in the evaluation and care of this patient. The physician did have a face to face encounter with the patient. This chart was documented by the indicated scribe, (Becky Doherty Scribe) and accurately reflects the services I performed and decisions made by me, Joseph Acosta MD, as attested by the provider's signature.
[2019-11-04] MEDS ORDERED: VITAMIN D PO SCH (09:00)
== END 2019-10-21 19:15 | disposition home or self-care (01) | DRG 310 ==
LOC: ED 16:23 → ICU 22:10 → 3N 10-19 19:56
PROVIDERS: ADMIT Internal Medicine; ATTEND Internal Medicine